=== PATIENT | male | born 1960 | race Caucasian/White ===

== ENCOUNTER 2019-06-07 08:11 | Inpatient (IN) | payer OTHER, MEDICAID ==
[~2019-06-07] VITALS: Ht 165.1 cm; Wt 68.0 kg
[2019-06-07 08:11] VITALS: BP 132/64
--- NOTE | 2019-06-07 08:13 | NUR ---
PT BIB [facility] TO ER BED 3
--- NOTE | 2019-06-07 08:14 | NUR ---
59/M BIBA FROM [facility] FOR EVALUATION OF COUGH, CONGESTION SINCE LAST NIGHT. NON VERBAL. HX BLIND,CP, HEPATITIS B, ADHD, G-TUBE, ICD,THROMBOCYTOPENIA. PATIENT POSITIONED FOR COMFORT; HOB ELEVATED; BEDRAILS UP X2; BED DOWN. ER MD MADE AWARE OF PT STATUS.
[2019-06-07] MEDS ORDERED: NACL 0.9% 2,000 ML IV ONE (08:15)
[2019-06-07] MEDS ORDERED: MEROPENEM 1,000 MG in NACL 0.9% 100 ML IV ONE (08:15)
[2019-06-07] MEDS ORDERED: VANCOMYCIN 1,000 MG in DEXTROSE 5% 250 ML IV ONE (08:15)
--- NOTE | 2019-06-07 08:18 | NUR ---
Dr. Franco is evaluating the patient at bedside.
[2019-06-07] MEDS ORDERED: VANCOMYCIN 1,000 MG VIAL ONE (08:29)
[2019-06-07] MEDS ORDERED: MEROPENEM 1,000 MG VIAL IV ONE (08:29)
[2019-06-07] MEDS ORDERED: AZEL137S8 NS (08:31)
[2019-06-07] MEDS ORDERED: FINA5TAB1 GT (08:31)
[2019-06-07] MEDS ORDERED: MIRABULK GT (08:31)
[2019-06-07] MEDS ORDERED: NA P133E RC (08:31)
[2019-06-07] MEDS ORDERED: [UNRECOGNIZED DRUG - CODE] GT (08:31)
[2019-06-07] MEDS ORDERED: BRIM2.5D OP (08:31)
[2019-06-07] MEDS ORDERED: RISP1TAB27 GT (08:31)
[2019-06-07] MEDS ORDERED: FLONAS NS (08:31)
[2019-06-07] MEDS ORDERED: MENT1OIN22 TP (08:31)
[2019-06-07] MEDS ORDERED: ACET-2619 GT (08:31)
[2019-06-07] MEDS ORDERED: [UNRECOGNIZED DRUG - CODE] GT (08:31)
[2019-06-07] MEDS ORDERED: SODI126M NS (08:31)
[2019-06-07] MEDS ORDERED: RISP2TAB29 GT (08:31)
--- NOTE | 2019-06-07 08:41 | NUR ---
coding tech at bedside.
[2019-06-07] MEDS ORDERED: ALBUTEROL SULFATE/IPRATROPIU 3 ML SOL IH ONE (08:45)
[2019-06-07 08:57] LABS: BASOPHILS % (AUTO) 0.1 % (0.0-2.0); EOSINOPHILS % (AUTO) 0.2 % (0.0-4.0); HEMATOCRIT 37.3 % (36-52); HEMOGLOBIN 11.9 g/dL (12.0-18.0); LYMPHOCYTES # (AUTO) 1.4 K/uL (2.0-11.5); LYMPHOCYTES % (AUTO) 7.5 % (20.5-51.1); MEAN CORPUSCULAR HEMOGLOBIN 27 pg (27-31); MEAN CORPUSCULAR HGB CONC 32 g/dL (33-37); MEAN CORPUSCULAR VOLUME 86.1 fL (80-94); MONOCYTES % (AUTO) 5.6 % (1.7-9.3); NEUTROPHILS % (AUTO) 86.6 % (42.2-75.2); PLATELET COUNT (AUTO) 159 K/uL (140-450); RED BLOOD CELL COUNT(AUTO) 4.34 MIL/uL (4.20-6.10); RED CELL DISTRIBUTION WIDTH 14.6 % (11.6-13.7)
[2019-06-07 09:07] LABS: ANION GAP 11.6 (8-16); CARBON DIOXIDE 27.2 mmol/L (21-32); CREATININE 0.8 mg/dL (0.7-1.3); POTASSIUM 3.8 mmol/L (3.5-5.1)
[2019-06-07 09:13] LABS: ALBUMIN 2.8 g/dL (3.4-5.0); TOTAL BILIRUBIN 0.3 mg/dL (0.0-1.0)
[2019-06-07 09:14] LABS: WHITE BLOOD COUNT (AUTO) 18.5 K/uL (4.8-10.8)
[2019-06-07 10:45] VITALS: BP 103/51
--- NOTE | 2019-06-07 10:45 | NUR ---
Patient will be admitted to care of DR LOPEZ. Admited to TELE. Will go to room 123B. Belongings list completed. Report to SAIRA GIORDANO.
--- NOTE | 2019-06-07 10:46 | NUR ---
RECEIVED REPORT FROM ER NURSE AYLIN. PT HAS IV ON RT FOREARM AT PT IS BLIND ON BOTH EYES, PT HAS ALLERGY WITH
--- NOTE | 2019-06-07 10:46 | NUR ---
RECEIVED REPORT FROM ER NURSE AYLIN. CAREGIVER, CHELA ON BEDSIDE. PT HAS IV ON RT FOREARM 20G. WITH VANCOMYCIN INFUSING AT 165ML/HR. PT APPEARS STABLE, NO SIGNS OF DISTRESS. PT IS BLIND ON BOTH EYES, HAS ALLERGY WITH SULFA AND DOXYCYCLINE. PT IS FALL RISK. PT HAS G TUBE, SKIN INTACT. MRSA SWAB AND URINE SAMPLE TAKEN AND SENT TO LAB. ALLERGY AND FALL RISK BANDS IMPLEMENTED. PT HAS TELE MONITOR. CALL LIGHT WITHIN PT'S REACH, SIDERAILS UP, BED ON LOW. WILL CONTINUE MONITORING
--- NOTE | 2019-06-07 11:00 | NUR ---
MRSA SWAB DONE AND URINE SAMPLE WERE SENT TO LAB.
--- NOTE | 2019-06-07 12:05 | NUR ---
FREQUENT ROUNDING DONE. PT IS ON HIS LEFT SIDE. ASSIST PT TO UPRIGHT POSITION FOR BETTER LUNG EXPANSION. PT HAS O2 AT 2LPM VIA NC. CALL LIGHT WITHIN PT'S REACH, BED LOW, SIDE RAILS UP. WILL CONTINUE MONITORING.
[2019-06-07] MEDS ORDERED: LORazepam 2 MG/ML VIAL IVP PRN (12:20)
[2019-06-07] MEDS ORDERED: ACETAMINOPHEN 325 MG TAB PO PRN (12:20)
[2019-06-07] MEDS ORDERED: ONDANSETRON 4 MG/2 ML VIAL IVP PRN (12:20)
[2019-06-07] MEDS ORDERED: SODIUM PHOSPHATE 118 ML ENEM RC PRN (12:20)
[2019-06-07] MEDS ORDERED: HYDROcodone/APAP 5/325 MG 1 TAB TAB PO PRN (12:20)
[2019-06-07] MEDS ORDERED: SODIUM CHLORIDE 0.65% 45 ML BTL NS PRN (12:20)
[2019-06-07] MEDS ORDERED: ACETAMINOPHEN 650 MG/20.3 ML UDC GT PRN (12:20)
[2019-06-07] MEDS ORDERED: guaiFENesin 20 MG/ML UDC GT PRN (12:20)
[2019-06-07] MEDS ORDERED: [UNRECOGNIZED DRUG - REMARK] GT PRN (12:20)
[2019-06-07 13:14] LABS: APPEARANCE,URINE CLEAR (CLEAR); BILIRUBIN,URINE NEGATIVE (NEGATIVE); BLOOD, URINE NEGATIVE (NEGATIVE); COLOR,URINE YELLOW (YELLOW); LEUKOCYTE ESTERASE ,URINE NEGATIVE (NEGATIVE); NITRITE, URINE NEGATIVE (NEGATIVE); UGLUCOSE NEGATIVE (NEGATIVE)
--- NOTE | 2019-06-07 14:56 | NUR ---
DC PLANNIN YRS OLD MALE PATIENT WAS ADMITTED FROM [facility] WITH A DX OF PNEUMONIA. PT IS BLIND AND NON-VERBAL HAS A HX OF MENTAL RETARDATION , CEREBRAL PALSY, HEP B, ADHD, ICD, G-TUBE AND THROMBOCYTOPENIA. CBC 18.5 CXR ORDERED BLOOD CULTURE PENDING . ADMINISTERED VANCOMYCIN AND MEROPENEM IV ABX , RT PROTOCOL AND CONTINUE HOME MEDS. DC PLAN TO GO TO [facility] WHEN STABLE. CM TO FOLLOW . Addendum: 06/08/19 at 1330 by Delmi Grijalva CM DC PLANNING SEEN BY DR DAVID JONES CONTINUE IV ABX OF VANCOMYCIN AND MEROPENEM AND TAMIFLU, URINE CULTURE PENDING , ISOLATION FOR MRSA OF NARES. CONSULTED WITH DR CHERRY FOR BLACK EMESIS /RESIDUAL FROM G-TUBE. DC PLAN TO GO BACK TO [facility] WHEN STABLE. CM TO FOLLOW. Addendum: 06/10/19 at 1632 by Shruthi Roche ON ISO FOR MRSA NARES. BLOOD C/S NO GROWTH AFTER 48 HOURS. STILL ON MERREM AND VANCO. DC PLAN BACK TO [facility] PENDING PATIENT'S RESPONSE TO TREATMENT. Addendum: 06/11/19 at 1445 by Delmi Grijalva DC PLANNING: CONTINUE WITH CURRENT ABX MEROPENEM , VANCOMYCIN AND TAMIFLU DAY #3 AND VANCO VIA G-TUBE FOR C-DIFF .DC PLAN AWAITING FOR FINAL CULTURE RESULTS .DC PLAN TO GO BACK TO [facility] WHEN STABLE . CM TO FOLLOW Addendum: 06/12/19 at 1449 by Delmi Grijalva DC PLANNING: CALLED LAB FOR THE FINAL RESULT OF SPUTUM CULTURE , CHECKED IT WITH [facility] STATED NO NEED FOR GRAM POSITIVE COCCI MANY YEAST.NOTIFIED DR PALIWAL A. FOR IV ABX. PT HAS A DC ORDER TO [facility] ,FAXED TO I [facility] , WAITING FOR PICC LINE PLACEMENT CM TO FOLLOW Addendum: 06/12/19 at 1604 by Delmi Grijalva CM DC PLANNING PATIENT IS ACCEPTED AT [facility] ROOM 420A # TO GIVE REPORT [phone] AND [facility] WITH [employer] AND DECK SUPERVISOR TIME 5:30 PM NOTIFIED MILLER CHARGE NURSE
[2019-06-07 16:00] VITALS: BP 108/67
--- NOTE | 2019-06-07 16:06 | NUR ---
[facility] CONSULT HAS BEEN RECEIVED FOR TUBE FEEDING. PATIENT WILL BE ASSESSED WITHIN 1-2 DAYS OF ADMISSION.
--- NOTE | 2019-06-07 16:13 | NUR ---
RD RECOMMENDATION FOR TUBE FEEDING: JEVITY 1.2 @ 60 ML/HR X 24 HR WITH FREE WATER FLUSH OF 140 ML Q6H. THIS WAS GIVEN TO PASQUALE SARMIENTO. TUBE FEEDING RECOMMENDATION WILL PROVIDE 1440 ML OF VOLUME, 1728 KCAL AND 80 GM OF PROTEIN/DAY.
--- NOTE | 2019-06-07 17:30 | NUR ---
PT VOMITED AND THE COLOR OF THE VOMITUS IS BLACK, PT WAS CLEANED AND NO SIGN OF DISTRESS NOTED AND WILL MONITOR .
--- NOTE | 2019-06-07 19:11 | NUR ---
REPORT GIVEN TO CIVIL ENGINEERING DIRECTOR NURSE FOR CONTINUITY OF CARE. PT APPEARS STABLE, NO SIGNS OF DISTRESS, PT HAS O2 AT 2LPM VIA NC. CALL LIGHT WITHIN PT'S REACH, BED ON LOW AND SIDERAILS UP.
--- NOTE | 2019-06-07 19:15 | NUR ---
RECEIVED REPORT FROM DAYSHIFT NURSE AT PATIENTS BEDSIDE. PATIENT NONVERBAL, UNABLE TO FOLLOW COMMANDS, DOES NOT OPEN EYES, LEGALLY BLIND PLACARD PLACED AT BEDSIDE. ABNORMAL FLEXION. PATIENT ON NASAL CANNULA 2LPM, OXYGEN SATURATION 82%, INCREASED TO 3LPM FOR SATURATIONS AT 89%. BREATHING IS UNLABORED BUT RHONCHI HEARD THROUGHOUT, COUGH AND CONGESTION NOTED. SMALL AMOUNT OF WHITE CREAMISH SECRETIONS NOTED. SINUS TACH ON MONITOR. RIGHT FOREARM PERIPHERAL IV, 20G FLUSHED AND PATENT WITHOUT SYMPTOMS. SALINE LOCKED. GTUBE IN PLACE CLAMPED TO PATIENT. PATIENT IS INCONTINENT, DIAPER IN PLACE. SKIN INTACT. BED IS LOCKED AND IN LOW POSITION, SIDERAILS UP x3, SAFETY ALARMS IN PLACE. WILL CONTINUE TO MONITOR.
[2019-06-07 20:00] VITALS: BP 119/65
[2019-06-07] MEDS: MEROPENEM 1,000 MG in NACL 0.9% 100 ML IV SCH (20:54)
[2019-06-07] MEDS: POLYETHYLENE GLYCOL 17 GM/PKT GT SCH (20:54)
[2019-06-07] MEDS: risperiDONE 1 MG TAB GT SCH (20:54)
[2019-06-07] MEDS ORDERED: AZELASTINE HCL NS SCH (21:00)
[2019-06-07] MEDS ORDERED: RISPERIDONE 2 MG GT SCH (21:00)
--- NOTE | 2019-06-07 21:10 | NUR ---
TYLER VALVE ATTACHED TO PATIENTS GTUBE. CHECKED RESIDUALS, 30 ML OF BLACK GASTRIC JUICES NOTED. SCHEDULED MEDICATIONS GIVEN, PATIENT TOLERATED WELL.
--- NOTE | 2019-06-07 21:40 | NUR ---
SPOKE WITH , MADE AWARE THAT PHARMACY DOES NOT HAVE MEDICATION-MENTHOL/ZINC OXIDE AVAILABLE. OK TO HOLD MEDICATION FOR NOW, NEW ORDERS FOR FLONASE-1 SPRAY EACH NOSTRIL BID, IV FLUIDS D5 0.45 NS @ 100ML/HR, AND GI CONSULT WITH DR. Siddharth CHERRY PER BLACK EMESIS AND BLACK RESIDUALS FROM GTUBE. ALSO OK TO HOLD FEEDING RECOMMENDATION- JEVITY 1.2. WILL CARRY OUT.
[2019-06-07] MEDS: DEXT 5% / NACL 0.45% 1,000 ML IV SCH (22:58)
--- NOTE | 2019-06-07 23:05 | NUR ---
PATIENT IS NOTED WITH ABNORMAL FLEXION/RIGID AND SEMI-CONTRACTED. PATIENT ACCIDENTALLY PULLED OUT IV SITE AT RIGHT FOREARM. RN CLEANED AND APPLIED DRESSING AT OLD IV SITE. STARTED NEW PERIPHERAL IV AT RIGHT FOREARM 22G, FLUSHED, PATENT AND WITHOUT SYMPTOMS. IV FLUIDS INFUSING.
[2019-06-07] MEDS ORDERED: VANCOMYCIN PER PHARMACY MC PRN (23:55)
[2019-06-08] VITALS: BP 117/64
--- NOTE | 2019-06-08 01:00 | NUR ---
INFLUENZA SWAB OF BOTH NARES OBTAINED. NASAL CANNULA BACK IN PLACE TO 3LPM. PATIENT TOLERATED WELL.
[2019-06-08] MEDS ORDERED: VANCOMYCIN 1,000 MG in DEXTROSE 5% 250 ML IV SCH (02:00)
--- NOTE | 2019-06-08 02:25 | NUR ---
PATIENT VOMITED A GOOD AMOUNT OF BLACK EMESIS. ALSO HAD A MODERATE SIZE BOWEL MOVEMENT, BLACK AND SEMI SOLID. PROVIDED SPONGE BATH AND SKIN CARE. VITALS RECORDED: HR-132 BPM, BP-124/108, G3WLOC-81% ON NASAL CANNULA 3LPM. GTUBE CLAMPED AT THIS TIME. REINFORCED NASAL CANNULA, INTERMITTENT COUGH NOTED. SAFETY ALARMS IN PLACE. WILL CONTINUE TO MONITOR.
[2019-06-08 04:00] VITALS: BP 112/46
--- NOTE | 2019-06-08 04:10 | NUR ---
PATIENT CONTINUED ON NASAL CANNULA AT 3LPM, SATURATIONS ARE IMPROVING, AT 94%. SAFETY ALARMS IN PLACE, IV FLUIDS INFUSING, BED LOCKED AND IN LOWEST POSITION.
[2019-06-08] MEDS: MEROPENEM 1,000 MG in NACL 0.9% 100 ML IV SCH ×3 (04:48→21:21)
[2019-06-08] MEDS ORDERED: VANCOMYCIN 1,000 MG VIAL ONE (06:00)
[2019-06-08 06:20] LABS: ANION GAP 10.4 (8-16); CARBON DIOXIDE 28.3 mmol/L (21-32); CREATININE 0.8 mg/dL (0.7-1.3); POTASSIUM 3.7 mmol/L (3.5-5.1)
--- NOTE | 2019-06-08 06:20 | NUR ---
SHOPPING INVESTIGATOR AT BEDSIDE FOR CHEST XRAY, PATIENT TOLERATED WELL.
--- NOTE | 2019-06-08 07:12 | NUR ---
RECEIVED REPORT FROM CLASSIFICATION CASE MANAGER NURSE FOR CONTINUITY OF CARE. PT IS SLEEPING WITH NO SIGNS OF DISTRESS. PT HAS IV D5 1/2 NS AT RT FOREARM 20G INFUSING AT 100ML/HR. PT HAS 02 AT 3LPM VIA NC.PT IS NON-VERBAL. CALL LIGHT WITHIN PT'S REACH, BED ON LOW, SIDERAILS UP. WILL CONTINUE TO MONITOR.
[2019-06-08 08:00] VITALS: BP 111/58
[2019-06-08 08:40] LABS: HEMATOCRIT 34.3 % (36-52); HEMOGLOBIN 10.8 g/dL (12.0-18.0); MEAN CORPUSCULAR VOLUME 86.6 fL (80-94); RED BLOOD CELL COUNT(AUTO) 3.97 MIL/uL (4.20-6.10); WHITE BLOOD COUNT (AUTO) 28.4 K/uL (4.8-10.8)
[2019-06-08 08:41] LABS: MEAN CORPUSCULAR HEMOGLOBIN 27 pg (27-31); MEAN CORPUSCULAR HGB CONC 32 g/dL (33-37); PLATELET COUNT (AUTO) 141 K/uL (140-450); RED CELL DISTRIBUTION WIDTH 14.6 % (11.6-13.7)
[2019-06-08 08:42] LABS: LYMPHOCYTES % (MANUAL) 12 % (20-46); MONOCYTES % (MANUAL) 2 % (5-12)
--- NOTE | 2019-06-08 08:43 | NUR ---
PATIENT HAS BEEN SCREENED AND CATEGORIZED HIGH NUTRITION RISK. PATIENT WILL BE SEEN WITHIN 1-2 DAYS OF ADMISSION. 06/08/[address]
[2019-06-08] MEDS ORDERED: MENTHOL/ZINC OXIDE 113 GM TUBE TP SCH (09:00)
--- NOTE | 2019-06-08 09:00 | NUR ---
PT HAD BM. ASSISTED NATIONAL VAN OWNER OPERATOR CLEANING THE PT AND CHANGING GOWN. BM APPEARS DARK AND PASTY. ALL SAFETY MEASURE WAS PUT IN PLACE.
[2019-06-08] MEDS: FINASTERIDE 5 MG TAB GT SCH (09:30)
[2019-06-08] MEDS: risperiDONE 1 MG TAB GT SCH ×2 (09:30→21:21)
[2019-06-08] MEDS: POLYETHYLENE GLYCOL 17 GM/PKT GT SCH ×2 (09:30→21:24)
[2019-06-08] MEDS: OSELTAMIVIR PHOSPHATE 75 MG CAP GT SCH ×2 (09:30→21:21)
--- NOTE | 2019-06-08 09:30 | NUR ---
THERE IS A RESIDUAL OF 30ML FROM G-TUBE. GREENISH IN COLOR. SCHEDULED MEDS GIVEN. HANG A NEW BAG OF D5 1/2 NS INFUSING AT 100ML/HR. WILL CONTINUE TO MONITOR
[2019-06-08] MEDS: FLUTICASONE NASAL 50 MCG/ACTUATION 16 GM BTL NS SCH ×2 (09:59→21:00)
[2019-06-08] MEDS: DEXT 5% / NACL 0.45% 1,000 ML IV SCH ×2 (09:59→21:33)
[2019-06-08 12:00] VITALS: BP 94/54
--- NOTE | 2019-06-08 12:20 | NUR ---
PT WAS GIVEN MERREM IVPB NOW , BP IS 92/53, PULSE IS 94, O2 SATURATION IS 100% AT 3L O2 NC, NO SIGN OF DISTRESS NOTED AND WILL MONITOR PT
--- NOTE | 2019-06-08 13:39 | NUR ---
LOAN ASSISTANT assessment/discharge plan High Risk DC Screen Yes Name: Marsha Dennis Home Relationship: sister Pre-Admission Living Arrangements: Other Other: [facility] ([facility]) Prior ADL Needs Assistance Current Home Health Name/Tel: N/A Current DME/02 Name/Tel: wheelchair Current Hospice Name/Tel: N/A Current Dialysis Name/Tel: N/A Healthcare Decision Maker: Next of Kin Other: [facility] Advance Directive No Tentative Discharge Plan Summary: Patient is a 59 year old male admitted for pneumonia at bedside. I called and spoke with department sales manager Analisa Wolfe of [facility], she referred me to speak with their nurse Pretty to obtained information about patient . I called and spoke with Pretty and obtained following information. Patient's case coordinator at [facility] is Sisi Pritchett . Patient is not conserved and [facility] either contacts Sisi or patient's sister Marsha Dennis for medical consents. [facility] cannot accept patient at their facility if he needs abx iv/s. Patient's pcp is Thomas Higuera and follows up with patient at [facility] once a month or as needed. Tipple Engineer and/or Antique Furniture Reproducer will follow up as needed. Signature: LIZZIE Baldwin Date: Jun 08, 2019
[2019-06-08] MEDS: VANCOMYCIN 1,000 MG in DEXTROSE 5% 250 ML IV SCH (14:16)
[2019-06-08] MEDS ORDERED: fentaNYL 0.05 MG/ML VIAL ONE (14:19)
[2019-06-08] MEDS ORDERED: diphenhydrAMINE 50 MG/ML VIAL ONE (14:19)
[2019-06-08] MEDS ORDERED: MIDAZOLAM 2 MG/2 ML VIAL ONE (14:19)
--- NOTE | 2019-06-08 14:33 | NUR ---
PT IS OFF THE UNIT NOW FOR A EGD PROCEDURE, BP NOTED WAS 85/47, PULSE IS 89% 98%, DR. CHERRY WAS INFORMED AND ORDERED THE OR NURSES TO GIVE NORMAL SALINE BOLUS OF 1000ML.
--- NOTE | 2019-06-08 15:20 | NUR ---
PT CAME BACK FROM EGD PROCEDURE, BP IS 102/54, PULSE IS 95, WILL MONITOR PT.
--- NOTE | 2019-06-08 15:56 | NUR ---
06/08/19 RD INITIAL ASSESSMENT COMPLETED PLEASE REFER TO NUTRITION ASSESSMENT UNDER CARE ACTIVITY FOR ESTIMATED NUTRITIONAL NEEDS. 1. CONTINUE NPO MEDICALLY APPROPRIATE 2. IF/WHEN PATIENT IS MEDICALLY STABLE CONSIDER JEVITY 1.2 @ 60 ML/HR X 24 HR WITH A FREE WATER FLUSH OF 140 ML Q6H -THIS WILL PROVIDE 1440 ML OF VOLUME, 1728 KCAL AND 80 GM OF PROTEIN, WHICH MEETING 100% OF ESTIMATED NEEDS 3. IR PATIENT CONTINUES NPO CONSIDER PARENTERAL NUTRITION 4. RD TO FOLLOW-UP 2-3 DAYS, HIGH RISK ROXY LU RD
[2019-06-08 16:00] VITALS: BP 101/60
--- NOTE | 2019-06-08 18:05 | NUR ---
CHECKED RESIDUAL , NONE. SCHEDULED MEDS GIVEN. FLUSHED WITH WATER AFTER. PT APPEARS STABLE, NO SIGNS OF DISTRESS, CALL LIGHT WITHIN PT'S REACH, BED ON LOW, SIDERAILS UP. WILL CONTINUE TO MONITOR
[2019-06-08] MEDS: METOCLOPRAMIDE 10 MG/10 ML SYRP UDC GT SCH (18:09)
[2019-06-08] MEDS: SENNA 8.6 MG TAB PO SCH (18:10)
--- NOTE | 2019-06-08 19:05 | NUR ---
REPORT GIVEN TO BRIDGE TEACHER NURSE FOR CONTINUITY OF CARE. PT APPEARS STABLE. G TUBE FEEDING STARTED. CALL LIGHT IN PLACE WITHIN PT'S REACH.
--- NOTE | 2019-06-08 19:15 | NUR ---
RECEIVED BEDSIDE REPORT FROM AM SHIFT NURSE. PATIENT IS LYING IN BED. NO SOB OR DISTRESS NOTED. ON 02 3LPM VIA NASAL CANNULA, TOLERATING WELL. IV ACCESS ON RIGHT FOREARM 22 GAUGE, PATENT, INTACT AND INFUSING WELL. SKIN IS INTACT. GTUBE IN PLACE, WITH ONGOING FEEDING. BOARD UPDATED. INITIAL ASSESSMENT DONE. CALL LIGHT WITHIN PATIENT REACH. WILL CONTINUE TO MONITOR PATIENT. Addendum: 06/08/19 at 2019 by Alba Omer RN BED IN LOW, SAFETY MEASURES IN PLACE.
[2019-06-08 20:20] VITALS: BP 120/74
--- NOTE | 2019-06-08 21:05 | NUR ---
ROUNDS DONE. NO DISTRESS NOTED AT THIS TIME. WILL CONTINUE TO MONITOR PATIENT.
[2019-06-09 00:05] VITALS: BP 114/62
[2019-06-09] MEDS: DEXT 5% / NACL 0.45% 1,000 ML IV SCH (00:20)
--- NOTE | 2019-06-09 00:43 | NUR ---
PATIENT REPOSITIONED WITH HELP OF ARTIST MANAGER AT THIS TIME. NO DISTRESS NOTED.
--- NOTE | 2019-06-09 02:30 | NUR ---
ROUNDS DONE. NO DISTRESS NOTED AT THIS TIME. CALL LIGHT WITHIN PATIENT REACH. WILL CONTINUE TO MONITOR PATIENT.
[2019-06-09] MEDS: VANCOMYCIN 1,000 MG in DEXTROSE 5% 250 ML IV SCH ×2 (02:49→14:46)
[2019-06-09 04:10] VITALS: BP 129/79
[2019-06-09] MEDS: MEROPENEM 1,000 MG in NACL 0.9% 100 ML IV SCH ×3 (04:30→21:15)
--- NOTE | 2019-06-09 04:50 | NUR ---
RT SUCTIONED OUT DARK/BLACKISH LIQUID. CN MADE AWARE. FEEDING STOPPED AT THIS TIME. Addendum: 06/09/19 at 0510 by Alba Omer RN DESCRIPTION OF COLOR EDIT TO COFFEE GROUND COLOR
--- NOTE | 2019-06-09 05:01 | NUR ---
0450 SXNED PATIENT FOR SPUTUM SAMPLE. RECIEVED DARK BROWN LIQUID. NO SPUTUM UPTAINED. PATIENTS BREATH SOUNDS ARE COARSE. RN AWARE
--- NOTE | 2019-06-09 05:05 | NUR ---
PAGEVaibhav BOCANEGRA AT THIS TIME.
--- NOTE | 2019-06-09 05:25 | NUR ---
SPOKE WITH AT THIS TIME. NEW ORDER MADE TO INSERT NGT WITH INTERMITTENT SUCTIONING. ORDERS CARRIED OUT.
--- NOTE | 2019-06-09 05:26 | NUR ---
MD ORDERED FOR FEEDING TO BE STOPPED AND NGT TO BE INSERTED.
--- NOTE | 2019-06-09 06:12 | NUR ---
NGT INSERTED AT THIS TIME WITH HELP FROM ANOTHER RN AND CHARGE NURSE.
--- NOTE | 2019-06-09 06:46 | NUR ---
SPOKE WITH MD FOR ORDERS FOR MITTENS, NON-BEHAVIORAL RESTRAINTS. PATIENT KEEPS PULLING O2 TUBING AND PATIENT PULLED NG-TUBE.
--- NOTE | 2019-06-09 06:50 | NUR ---
TRIED TO REINSERT NG-TUBE WITH HELP FROM CHARGE NURSE AND ANOTHER RN. UNSUCCESSFUL AT THIS TIME. WILL ENDORSE TO AM SHIFT NURSE.
[2019-06-09] MEDS: METOCLOPRAMIDE 10 MG/10 ML SYRP UDC GT SCH ×3 (07:20→17:01)
--- NOTE | 2019-06-09 07:20 | NUR ---
ENDORSED TO AM SHIFT NURSE FOR CONTINUITY OF CARE. PATIENT IN STABLE CONDITION AT THIS TIME. CALL LIGHT WITHIN PATIENT REACH.
--- NOTE | 2019-06-09 07:21 | NUR ---
RECEIVED REPORT FROM SQUARING MACHINE OPERATOR NURSE AT BEDSIDE FOR CONTINUITY OF CARE. PATIENT IS LYING IN BED, LEGALLY BLIND. NO SOB OR DISTRESS NOTED ON 02 3L VIA NASAL CANNULA. IV ACCESS ON RIGHT FOREARM 22 GAUGE, PATENT, INTACT AND INFUSING WELL. SKIN IS INTACT. GTUBE IN PLACE, ON HOLD FOR NGT INSERTION. BOARD UPDATED. SAFETY PRECAUTIONS IN PLACE, BED IN LOWEST POSITION WITH ALARM AND BRAKES ON, CALL LIGHT WITHIN PATIENT REACH. WILL CONTINUE TO MONITOR PATIENT.
[2019-06-09 07:47] LABS: ANION GAP 9.9 (8-16); CARBON DIOXIDE 29.1 mmol/L (21-32); CREATININE 0.7 mg/dL (0.7-1.3)
[2019-06-09 08:00] VITALS: BP 120/75
[2019-06-09 08:04] LABS: BASOPHILS % (AUTO) 0.2 % (0.0-2.0); EOSINOPHILS # (AUTO) 0.1 K/uL (0-0.4); EOSINOPHILS % (AUTO) 0.3 % (0.0-4.0); HEMOGLOBIN 10.8 g/dL (12.0-18.0); LYMPHOCYTES # (AUTO) 1.5 K/uL (2.0-11.5); LYMPHOCYTES % (AUTO) 8.8 % (20.5-51.1); MEAN CORPUSCULAR HEMOGLOBIN 27 pg (27-31); MEAN CORPUSCULAR HGB CONC 32 g/dL (33-37); MEAN CORPUSCULAR VOLUME 86.2 fL (80-94); MONOCYTES # (AUTO) 0.8 K/uL (0.8-1.0); NEUTROPHILS # (AUTO) 14.7 K/uL (1.8-7.7); NEUTROPHILS % (AUTO) 85.7 % (42.2-75.2); PLATELET COUNT (AUTO) 117 K/uL (140-450); RED BLOOD CELL COUNT(AUTO) 3.95 MIL/uL (4.20-6.10); RED CELL DISTRIBUTION WIDTH 14.2 % (11.6-13.7); WHITE BLOOD COUNT (AUTO) 17.1 K/uL (4.8-10.8)
[2019-06-09] MEDS: POLYETHYLENE GLYCOL 17 GM/PKT GT SCH ×2 (09:00→21:18)
[2019-06-09] MEDS: SENNA 8.6 MG TAB PO SCH ×3 (09:00→17:01)
--- NOTE | 2019-06-09 09:10 | NUR ---
NG TUBE INSERTED. WAITING FOR RADIOLOGY TO VERIFY PLACEMENT.
--- NOTE | 2019-06-09 09:40 | NUR ---
PATIENT REMOVED NG TUBE. WILL ATTEMPT TO INSERT AGAIN.
--- NOTE | 2019-06-09 10:30 | NUR ---
NG TUBE INSERTED. WILL WAIT FOR RADIOLOGY TO VERY PLACEMENT.
[2019-06-09] MEDS ORDERED: POTASSIUM CHLORIDE 20% 40 MEQ/15 ML UDC GT SCH ×2 (11:04→12:45)
--- NOTE | 2019-06-09 11:30 | NUR ---
DR CHERRY IN TO SEE PATIENT. INFORMED DR. CHERRY ABOUT SPUTUM RECEIVED BY RESPIRATORY. NEW ORDER IN TO DISCONTINUE GTUBE.
[2019-06-09 12:00] VITALS: BP 119/58
--- NOTE | 2019-06-09 12:10 | NUR ---
275 ML OF DARK LIQUID RESIDUAL TAKEN FROM GTUBE. GTUBE WILL BE HELD AT THIS TIME. WILL REASSESS. PATIENT'S FAMILY VISITED. UPDATED THEM WITH PLAN OF CARE. NO S/S OF DISTRESS NOTED FROM PATIENT. SAFETY PRECAUTIONS IN PLACE, CALL LIGHT WITHIN REACH, WILL CONTINUE TO MONITOR PATIENT.
[2019-06-09] MEDS: FLUTICASONE NASAL 50 MCG/ACTUATION 16 GM BTL NS SCH ×2 (13:20→21:00)
--- NOTE | 2019-06-09 13:31 | NUR ---
GTUBE ASCULTATED FOR PLACEMENT, 0 ML OF RESIDUAL NOTED. ORDERED MEDICATIONS GIVEN. PATIENT TOLERATING IT. NO S/S OF SOB OR DISTRESS NOTED AT THIS TIME. BED IN LOWEST POSITION WITH ALARM ON, CALL LIGHT WITHIN REACH, WILL CONTINUE TO MONITOR PATIENT.
[2019-06-09] MEDS ORDERED: CRUSHER, PILL MC ONE (13:35)
[2019-06-09] MEDS: risperiDONE 1 MG TAB GT SCH ×2 (13:38→21:18)
[2019-06-09] MEDS: OSELTAMIVIR PHOSPHATE 75 MG CAP GT SCH ×2 (13:39→21:18)
[2019-06-09] MEDS: FINASTERIDE 5 MG TAB GT SCH (13:39)
--- NOTE | 2019-06-09 14:27 | NUR ---
CALLED LAB TO INQUIRE ABOUT PENDING VANCO TROUGH. WILL WAIT FOR RESULTS.
--- NOTE | 2019-06-09 14:46 | NUR ---
GTUBE ASCULTATED FOR PLACEMENT, 0 ML OF RESIDUAL NOTED. ORDERED MEDICATIONS GIVEN. SCHEDULED ANTIBIOTICS GIVEN. PATIENT TOLERATING IT. NO S/S OF SOB OR DISTRESS NOTED AT THIS TIME. BED IN LOWEST POSITION WITH ALARM ON, CALL LIGHT WITHIN REACH, WILL CONTINUE TO MONITOR PATIENT.
[2019-06-09 16:00] VITALS: BP 114/67
--- NOTE | 2019-06-09 18:04 | NUR ---
NEW BAG OF TUBE FEEDING STARTED. GT AUSCULTATED FOR PLACEMENT, 0 ML OF RESIDUAL NOTED. PATIENT TOLERATING IT. PATIENT RESTING IN BED COMFORTABLY, BED IN LOWEST POSITION WITH ALARM ON, CALL LIGHT WITHIN REACH, WILL CONTINUE TO MONITOR PATIENT.
--- NOTE | 2019-06-09 19:23 | NUR ---
REPORT GIVEN TO AUTOMATIC BUFFING WHEEL FORMER NURSE AT BEDSIDE FOR CONTINUITY OF CARE. NO S/S OF DISTRESS OR SOB NOTED.
--- NOTE | 2019-06-09 19:24 | NUR ---
RECEIVED BEDSIDE REPORT FROM AM SHIFT NURSE PARTH. PATIENT IS LYING IN BED, AWAKE. NO DISTRESS NOTED. PATIENT IS ON O2 2LPM VIA NASAL CANNULA. IV ACCESS ON RIGHT FOREARM 22 GAUGE, PATENT AND INTACT, INFUSING WELL. PT NOTED WITH SOFT MITTEN NON-BEHAVIORAL RESTRAINTS, TOLERATING WELL. G-TUBE IN PLACE, FEEDING INFUSING WELL. BED IN LOW, SAFETY MEASURES IN PLACE. INITIAL ASSESSMENT DONE. CALL LIGHT PLACED WITHIN PATIENT REACH. WILL CONTINUE TO MONITOR PATIENT.
[2019-06-09 20:05] VITALS: BP 135/64
--- NOTE | 2019-06-09 21:05 | NUR ---
RESPIRATORY THERAPISTS WITH PATIENT OBTAINING A SPUTUM CULTURE AT THIS TIME.
--- NOTE | 2019-06-09 23:42 | NUR ---
ROUNDS DONE. PATIENT REPOSITIONED AT THIS TIME. NO DISTRESS NOTED. VISIBLE CHEST RISE AND FALL NOTED. WILL CONTINUE TO MONITOR PATIENT.
[2019-06-10 00:05] VITALS: BP 146/72
--- NOTE | 2019-06-10 02:00 | NUR ---
IV LINE REINSERTED. PATIENT PULLED OUT IV. NEW SITE LEFT FOREARM 22 GAUGE, PATENT AND INTACT INFUSING WELL.
[2019-06-10] MEDS: VANCOMYCIN 1,000 MG in DEXTROSE 5% 250 ML IV SCH ×2 (02:07→14:00)
[2019-06-10] MEDS: DEXT 5% / NACL 0.45% 1,000 ML IV SCH ×2 (02:07→23:33)
[2019-06-10] MEDS: MEROPENEM 1,000 MG in NACL 0.9% 100 ML IV SCH ×3 (04:23→21:43)
--- NOTE | 2019-06-10 04:45 | NUR ---
ROUNDS DONE. NO DISTRESS NOTED. WILL CONTINUE TO MONITOR PATIENT.
[2019-06-10 05:51] LABS: BASOPHILS % (AUTO) 0.2 % (0.0-2.0); HEMATOCRIT 29.9 % (36-52); HEMOGLOBIN 9.6 g/dL (12.0-18.0); LYMPHOCYTES # (AUTO) 1.6 K/uL (2.0-11.5); LYMPHOCYTES % (AUTO) 8.8 % (20.5-51.1); MEAN CORPUSCULAR HEMOGLOBIN 28 pg (27-31); MEAN CORPUSCULAR HGB CONC 32 g/dL (33-37); MEAN CORPUSCULAR VOLUME 85.3 fL (80-94); MONOCYTES # (AUTO) 0.7 K/uL (0.8-1.0); MONOCYTES % (AUTO) 4.1 % (1.7-9.3); NEUTROPHILS # (AUTO) 15.4 K/uL (1.8-7.7); NEUTROPHILS % (AUTO) 86.9 % (42.2-75.2); PLATELET COUNT (AUTO) 142 K/uL (140-450); RED BLOOD CELL COUNT(AUTO) 3.51 MIL/uL (4.20-6.10); RED CELL DISTRIBUTION WIDTH 14.3 % (11.6-13.7); WHITE BLOOD COUNT (AUTO) 17.7 K/uL (4.8-10.8)
[2019-06-10 06:11] LABS: CARBON DIOXIDE 29.7 mmol/L (21-32); CREATININE 0.7 mg/dL (0.7-1.3); POTASSIUM 3.7 mmol/L (3.5-5.1)
--- NOTE | 2019-06-10 07:14 | NUR ---
ENDORSED TO AM SHIFT NURSE FOR CONTINUITY OF CARE. PATIENT IN STABLE CONDITION.
--- NOTE | 2019-06-10 07:15 | NUR ---
RECEIVED REPORT FROM NIGHT RN. PATIENT IS FULL CODE, ALLERGIES TO SULFA. PATIENT CAME FROM [facility]. IV TO LEFT FA 22G WITH NS INFUSING AT 60 ML/HR. PATIENT HAS A G-TUBE WITH FEEDING AT 25ML/HR. PATIENT HAS NASAL CANNULA 2L. WILL REVIEW AND CONTINUE WITH PLAN OF CARE.
[2019-06-10] MEDS: METOCLOPRAMIDE 10 MG/10 ML SYRP UDC GT SCH ×3 (07:28→17:21)
[2019-06-10 07:34] VITALS: BP 136/74
[2019-06-10] MEDS: risperiDONE 1 MG TAB GT SCH ×2 (08:46→21:41)
[2019-06-10] MEDS: SENNA 8.6 MG TAB PO SCH ×3 (08:47→17:00)
[2019-06-10] MEDS: OSELTAMIVIR PHOSPHATE 75 MG CAP GT SCH ×2 (08:48→21:41)
[2019-06-10] MEDS: FINASTERIDE 5 MG TAB GT SCH (08:56)
[2019-06-10] MEDS: POLYETHYLENE GLYCOL 17 GM/PKT GT SCH ×2 (08:57→21:00)
--- NOTE | 2019-06-10 09:15 | NUR ---
ADMINISTERED MORNING MEDICATION VIA G TUBE. PATIENT TOLERATED WELL. PATIENT IS VERY ANTSY AND REMOVING GOWN CONSTANTLY. ATTEMPTING TO CONTINUOUSLY RE-ORIENT PATIENT.
[2019-06-10] MEDS: FLUTICASONE NASAL 50 MCG/ACTUATION 16 GM BTL NS SCH ×2 (09:27→21:00)
--- NOTE | 2019-06-10 10:00 | NUR ---
NEW IV LINE TO LEFT FA 22G D/T PATIENT PULLING OUT OLD LINE, CANNULA INTACT.
[2019-06-10 12:00] VITALS: BP 112/38
--- NOTE | 2019-06-10 12:00 | NUR ---
PATIENT RESTING QUIETLY IN BED. NO COMPLAINTS AT THIS TIME.
--- NOTE | 2019-06-10 14:00 | NUR ---
PATIENT RESTING IN BED, NO COMPLAINTS AT THIS TIME
[2019-06-10 16:00] VITALS: BP 116/56
--- NOTE | 2019-06-10 18:05 | NUR ---
PT IS COUGHING AND SOUNDS LIKE THERE ARE SECRETIONS BUILT UP. RAISED HOB TO 30 DEGREES, INCREASED O2 TO 3L VIA NASAL CANNULA, PATIENT SATURATING AT 94%. LISTENED TO BREATH SOUNDS, LUNGS SOUND CLEAR.
--- NOTE | 2019-06-10 19:25 | NUR ---
WAS INFORMED PATIENT IS POSITIVE FOR C DIFF. PAGED DR ARROYO
--- NOTE | 2019-06-10 19:26 | NUR ---
RECEIVED BEDSIDE REPORT FROM AM NURSE SHIRA, PT STABLE, NO DISTRESS NOTED, PT ON ,MITTEN RESTRAINTS DUE TO PT PULLING OUT NC, IVS AND GT. PT NONVERBAL, UNABLE TO UNDERSTAND/COMPREHEND TEACHINGS. PT IV TO L WRIST 22G PATENT INTACT, INFUSING WELL, PT ON 2LPM O2 VIA NC, NO SOB NOTED, GT IN PLACE WITH FEEDINGS, INITIAL ASSESSMENT DONE, ALL SAFETY PRECAUTION MET, CALL LIGHT WITHIN REACH, WILL CONTINUE TO MONITOR.
[2019-06-10 20:00] VITALS: BP 139/60
--- NOTE | 2019-06-10 21:43 | NUR ---
DUE MEDICATION ADMINISTERED, PT TOLERATED WELL, PT RESTING, NO DISTRESS NOTED, CALL LIGHT WITHIN REACH, WILL CONTINUE TO MONITOR. Addendum: 06/10/19 at 2240 by Amarilys Alvarez RN MIRALAX HELD DUE TO PT HAVING DIARRHEA FOR A FEW DAYS. MEDICATION FLONASE IS NOT AVAILABLE IN PT BEDSIDE OR BIN.
--- NOTE | 2019-06-10 22:18 | NUR ---
PT PULLED OUT IV, NEW IV INSERTED TO L FA 22G PATENT INTACT, INFUSING WELL, PT TOLERATED WELL, NO DISTRESS NOTED, CALL LIGHT WITHIN REACH, WILL CONTINUE TO MONITOR.
--- NOTE | 2019-06-10 22:32 | NUR ---
CALLED DR. ARROYO REGARDING PT POSITIVE FOR MRSA NARES, PER DR ARROYO TO ORDER BACTROBAN NASAL, WILL PUT IN ORDERS.
[2019-06-11] VITALS: BP 131/59
[2019-06-11] MEDS ORDERED: VANCOMYCIN 500 MG VIAL GT SCH
[2019-06-11] MEDS: VANCOMYCIN 500 MG VIAL GT SCH ×4 (01:00→18:27)
--- NOTE | 2019-06-11 01:00 | NUR ---
MEDICATION DUE ADMINISTERED, PT TOLERATED WELL, NO DISTRESS NOTED, CALL LIGHT WITHIN REACH, WILL CONTINUE TO MONITOR.
[2019-06-11] MEDS ORDERED: WATER STERILE 20 ML MC ONE (01:28)
[2019-06-11] MEDS ORDERED: VANCOMYCIN 1,000 MG VIAL ONE (01:55)
[2019-06-11] MEDS: VANCOMYCIN 1,000 MG in DEXTROSE 5% 250 ML IV SCH ×2 (02:05→14:00)
--- NOTE | 2019-06-11 02:05 | NUR ---
DUE MEDICATION ADMINISTERED, PT TOLERATED WELL, NO DISTRESS NOTED, CALL LIGHT WITHIN REACH, WILL CONTINUE TO MONITOR.
--- NOTE | 2019-06-11 02:58 | NUR ---
PT GT RESIDUAL 250ML, FEEDING HELD, WILL CONTINUE TO MONITOR. PT RESTING, NO DISTRESS NOTED, CALL LIGHT WITHIN REACH.
[2019-06-11 04:00] VITALS: BP 108/57
[2019-06-11] MEDS: MEROPENEM 1,000 MG in NACL 0.9% 100 ML IV SCH ×3 (05:06→20:04)
[2019-06-11 06:16] LABS: BASOPHILS % (AUTO) 0.4 % (0.0-2.0); EOSINOPHILS # (AUTO) 0.3 K/uL (0-0.4); EOSINOPHILS % (AUTO) 2.6 % (0.0-4.0); HEMATOCRIT 25.8 % (36-52); HEMOGLOBIN 8.4 g/dL (12.0-18.0); LYMPHOCYTES % (AUTO) 16.9 % (20.5-51.1); MEAN CORPUSCULAR HEMOGLOBIN 28 pg (27-31); MEAN CORPUSCULAR HGB CONC 33 g/dL (33-37); MEAN CORPUSCULAR VOLUME 85.1 fL (80-94); MONOCYTES % (AUTO) 8.5 % (1.7-9.3); NEUTROPHILS # (AUTO) 8.5 K/uL (1.8-7.7); NEUTROPHILS % (AUTO) 71.6 % (42.2-75.2); PLATELET COUNT (AUTO) 153 K/uL (140-450); RED BLOOD CELL COUNT(AUTO) 3.04 MIL/uL (4.20-6.10); RED CELL DISTRIBUTION WIDTH 14.2 % (11.6-13.7); WHITE BLOOD COUNT (AUTO) 11.9 K/uL (4.8-10.8)
[2019-06-11] MEDS: METOCLOPRAMIDE 10 MG/10 ML SYRP UDC GT SCH ×3 (06:27→16:30)
--- NOTE | 2019-06-11 06:35 | NUR ---
PT GT RESIDUAL STILL 130ML, CONTINUE TO HOLD GT FEED PER DR. ORDER. PT RESTING, NO DISTRESS NOTED, CALL LIGHT WITHIN REACH. WILL CONTINUE TO MONITOR.
[2019-06-11 06:44] LABS: ALBUMIN 1.8 g/dL (3.4-5.0); ANION GAP 4.6 (8-16); CARBON DIOXIDE 32.2 mmol/L (21-32); CREATININE 0.5 mg/dL (0.7-1.3); POTASSIUM 3.8 mmol/L (3.5-5.1); TOTAL BILIRUBIN 0.5 mg/dL (0.0-1.0)
--- NOTE | 2019-06-11 07:15 | NUR ---
RECEIVED REPORT FROM WASTEWATER OPERATOR NURSE. PATIENT IS ON NASAL CANNULA 3L. ON CONTACT PRECAUTIONS FOR C DIFF AND MRSA NARES. PATIENT HAS A G-TUBE, FEEDING CURRENTLY DC D/T HIGH RESIDUAL WITH WASTEWATER OPERATOR NURSE. PATIENT IS TO HAVE RT CONSULT TODAY FOR COUGH AND PERIODS OF BREATHING DISCOMFORT. CURRENTLY PATIENT IS SLEEPING, VISIBLE CHEST RISE AND FALL. RESTRAINTS HAVE BEEN RENEWED AT 0646. WILL REVIEW AND CONTINUE WITH PLAN OF CARE FOR THE DAY.
--- NOTE | 2019-06-11 07:25 | NUR ---
ENDORSED PT TO DAY SHIFT NURSE SHIRA GIORDANO. PT STABLE, NO DISTRESS NOTED, CALL LIGHT WITHIN REACH.
[2019-06-11 08:00] VITALS: BP 112/46
[2019-06-11] MEDS: FLUTICASONE NASAL 50 MCG/ACTUATION 16 GM BTL NS SCH ×2 (09:00→21:00)
--- NOTE | 2019-06-11 10:00 | NUR ---
ADMINISTERED MORNING MEDICATION VIA G-TUBE. RESIDUAL PRIOR WAS <5ML. WILL RESTART G-TUBE FEEDING AFTER 30 MIN.
[2019-06-11] MEDS: FINASTERIDE 5 MG TAB GT SCH (10:25)
[2019-06-11] MEDS: OSELTAMIVIR PHOSPHATE 75 MG CAP GT SCH ×2 (10:25→20:04)
[2019-06-11] MEDS: risperiDONE 1 MG TAB GT SCH ×2 (10:25→20:04)
[2019-06-11] MEDS: SENNA 8.6 MG TAB PO SCH ×3 (10:26→17:00)
[2019-06-11] MEDS: MUPIROCIN CA NASAL 2% 1GM TUBE NS SCH (10:28)
[2019-06-11] MEDS: POLYETHYLENE GLYCOL 17 GM/PKT GT SCH ×2 (10:28→20:04)
--- NOTE | 2019-06-11 11:30 | NUR ---
CHANGED PATIENTS SHEETS AND LINENS, NO BM NOTED.
[2019-06-11 12:00] VITALS: BP 94/44
--- NOTE | 2019-06-11 12:22 | NUR ---
06/11/19 RD FOLLOW UP COMPLETED PLEASE REFER TO NUTRITION ASSESSMENT UNDER CARE ACTIVITY FOR ESTIMATED NUTRITIONAL NEEDS. 1. RECOMMEND TO INCREASE ENTERAL NUTRITION GOAL RATE TO 60 ML/HR OF JEVITY 1.2 -THIS WILL PROVIDE 1440 ML OF VOLUME, 1728 KCAL AND 80 GM OF PROTEIN, WHICH MEETS 100% OF ESTIMATED NUTRIENT NEEDS 2. RECOMMEND FREE WATER FLUSH OF [address] TO FOLLOW-UP 2-3 DAYS, HIGH RISK ROXY LU, DAPHNIE
--- NOTE | 2019-06-11 13:30 | NUR ---
ROUNDED ON PATIENT. SLEEPING IN BED, VISIBLE CHEST RISE AND FALL. NO DISTRESS NOTED. PATIENT IS ON NASAL CANNULA 3L.
--- NOTE | 2019-06-11 15:46 | NUR ---
BEGAN VANCOMYCIN IVPB INFUSION. PATIENT IS SLEEPING IN BED, VISIBLE CHEST RISE AND FALL.
[2019-06-11 16:00] VITALS: BP 101/50
--- NOTE | 2019-06-11 16:07 | NUR ---
SPOKE WITH MAGALI FROM THE LAB REGARDING PT'S SPUTUM CULTURE RESULTS. PER MAGALI, RESULTS MIGHT COME IN TOMORROW.
[2019-06-11] MEDS: DEXT 5% / NACL 0.45% 1,000 ML IV SCH (16:13)
--- NOTE | 2019-06-11 18:27 | NUR ---
CHECKED PATIENTS RESIDUAL FROM G-TUBE, <5ML RETURN. ADMINISTERED VANCOMYCIN VIA G-TUBE. ALL NEEDS HAVE BEEN MET, WILL ENDORSE TO NIGHT NURSE FOR CONTINUITY OF CARE.
--- NOTE | 2019-06-11 19:25 | NUR ---
RECEIVED BEDSIDE REPORT FROM AM NURSE SHIRA, PT STABLE, NO DISTRESS NOTED, PT ON ,MITTEN RESTRAINTS DUE TO PT PULLING OUT NC, IVS AND GT. PT NONVERBAL, UNABLE TO UNDERSTAND/COMPREHEND TEACHINGS. PT IV TO L FA 22G PATENT INTACT, INFUSING WELL, PT ON 3LPM O2 VIA NC, NO SOB NOTED, GT IN PLACE WITH FEEDINGS, INITIAL ASSESSMENT DONE, ALL SAFETY PRECAUTION MET, CALL LIGHT WITHIN REACH, WILL CONTINUE TO MONITOR.
[2019-06-11 20:00] VITALS: BP 97/49
--- NOTE | 2019-06-11 20:04 | NUR ---
GIVEN POLYETHYLENE, RISPERIDONE, OSELTAMIVIR, AND MERREM MD ORDERED. PT TOLERATED WELL.
--- NOTE | 2019-06-11 20:30 | NUR ---
RECEIVED PATIENT ON 2L NASAL CANNULA, PULSE OX SAT 96%. NO ACUTE RESPIRATORY DISTRESS NOTED AT THIS TIME. WILL CONTINUE TO MONITOR.
--- NOTE | 2019-06-11 22:08 | NUR ---
PT HAD BM, CHANGED PT WITH COVER SEAMER, LIBERTAD. PT TOLERATED WELL.
[2019-06-12] VITALS: BP 95/56
[2019-06-12] MEDS: VANCOMYCIN 500 MG VIAL GT SCH ×3 (00:33→12:27)
--- NOTE | 2019-06-12 00:33 | NUR ---
GIVEN VANCO GT MD ORDERED. PT TOLERATED WELL.
[2019-06-12] MEDS: VANCOMYCIN 1,000 MG in DEXTROSE 5% 250 ML IV SCH ×2 (02:08→14:32)
--- NOTE | 2019-06-12 02:25 | NUR ---
PT SLEEPING IN BED, NO ACUTE DISTRESS NOTED.
[2019-06-12 04:00] VITALS: BP 107/44
[2019-06-12] MEDS: DEXT 5% / NACL 0.45% 1,000 ML IV SCH (04:20)
[2019-06-12] MEDS: MEROPENEM 1,000 MG in NACL 0.9% 100 ML IV SCH (04:21)
--- NOTE | 2019-06-12 04:21 | NUR ---
PT HAD BM, BLACK DIARRHEA. CHANGED PT WITH LIBERTAD KHOURY. GIVEN MERREM MD ORDERED. PT TOLERATED WELL.
[2019-06-12 06:29] LABS: CREATININE 0.7 mg/dL (0.7-1.3)
[2019-06-12 06:34] LABS: BASOPHILS % (AUTO) 0.5 % (0.0-2.0); EOSINOPHILS # (AUTO) 0.5 K/uL (0-0.4); EOSINOPHILS % (AUTO) 6.4 % (0.0-4.0); HEMATOCRIT 25.5 % (36-52); HEMOGLOBIN 8.6 g/dL (12.0-18.0); LYMPHOCYTES # (AUTO) 2.6 K/uL (2.0-11.5); LYMPHOCYTES % (AUTO) 30.4 % (20.5-51.1); MEAN CORPUSCULAR HEMOGLOBIN 29 pg (27-31); MEAN CORPUSCULAR HGB CONC 34 g/dL (33-37); MEAN CORPUSCULAR VOLUME 85.3 fL (80-94); MONOCYTES # (AUTO) 0.9 K/uL (0.8-1.0); MONOCYTES % (AUTO) 10.7 % (1.7-9.3); NEUTROPHILS # (AUTO) 4.4 K/uL (1.8-7.7); PLATELET COUNT (AUTO) 183 K/uL (140-450); RED BLOOD CELL COUNT(AUTO) 2.99 MIL/uL (4.20-6.10); RED CELL DISTRIBUTION WIDTH 14.4 % (11.6-13.7); WHITE BLOOD COUNT (AUTO) 8.4 K/uL (4.8-10.8)
[2019-06-12 06:35] LABS: CARBON DIOXIDE 33.6 mmol/L (21-32); POTASSIUM 3.6 mmol/L (3.5-5.1)
[2019-06-12] MEDS: METOCLOPRAMIDE 10 MG/10 ML SYRP UDC GT SCH ×2 (06:35→12:27)
--- NOTE | 2019-06-12 06:35 | NUR ---
GIVEN ANAO GT, RAGLAN. PT COUGHING, GIVEN ROBITUSSIN MD ORDERED. PT TOLERATED WELL.
--- NOTE | 2019-06-12 07:25 | NUR ---
RECEIVED BEDSIDE REPORT FROM PACKING SHED SUPERVISOR NURSE FOR CONTINUITY OF CARE. PT AWAKE AND MOVING AROUND ON BED. PT IS AAOX 1 TO NAME. RESPIRATION EVEN AND UNLABORED ON 3LPM VIA NC. FLACC 0. NO SIGNS OF DISTRESS NOTED. IV ON LFA 20G, CLEAN AND INTACT, INFUSING PER MD ORDER AT THIS TIME. SOFT WRIST RESTRAINT IN PLACE BILATERALLY, NO SIGN OF INJURY ON BOTH ARMS. G-TUBE IN PLACE AND INFUSING JEVITY 1.2 PER MD ORDER. PT IS BEDBOUND AND INCONTINENT. TELE MONITOR ATTACHED. CONTACT PRECAUTION AND C-DIFF PRECAUTION IN PLACE AND SIGN POSTED. SAFETY MEASURES IN PLACE. BED IN LOW POSITION AND CALL LIGHT WITHIN REACH. FALL RISK PROTOCOL IN PLACE AND BED ALARM ACTIVATED.
[2019-06-12 08:00] VITALS: BP 118/69
--- NOTE | 2019-06-12 09:30 | NUR ---
SPOKE WITH LESLYE FROM PICC LINE SERVICE, STATED FREIDA PICC MARGARITO RN WILL CALL FOR ETA.
--- NOTE | 2019-06-12 09:35 | NUR ---
PT HAS A LARGE SOFT BROWN BM, ASSISTED SANITATION WORKER TO CLEAN AND CHANGE PT. PT TOLERATED WELL. SOP2 MONITOR WITH VITAL SIGN MACHINE AT BEDSIDE. NO SIGNS OF DISTRESS NOTED. SAFETY MEASURES IN PLACE. BED IN LOW POSITION AND CALL LIGHT WITHIN REACH. BED ALARM ACTIVATED.
[2019-06-12] MEDS: MUPIROCIN CA NASAL 2% 1GM TUBE NS SCH (10:21)
[2019-06-12] MEDS: SENNA 8.6 MG TAB PO SCH ×2 (10:22→14:32)
[2019-06-12] MEDS: POLYETHYLENE GLYCOL 17 GM/PKT GT SCH (10:22)
[2019-06-12] MEDS: risperiDONE 1 MG TAB GT SCH (10:22)
[2019-06-12] MEDS: FINASTERIDE 5 MG TAB GT SCH (10:23)
[2019-06-12] MEDS: OSELTAMIVIR PHOSPHATE 75 MG CAP GT SCH (10:23)
--- NOTE | 2019-06-12 10:23 | NUR ---
CHECKED G-TUBE RESIDUAL PRIOR TO MED ADMINISTER, RECEIVED 5 ML.ADMINISTERED MEDS VIA G TUBE PER MD ORDER, FLUSHED BEFORE AND AFTER MEDS ADMINISTER, MEDS ED PROVIDED AND REINFORCEMENT NEEDED. PT AWAKE AND RESTING ON BED AT THIS TIME. SPO2 AT 91% VIA NC. FLACC 0. NO SIGNS OF DISTRESS NOTED. TELE MONITOR ATTACHED. SAFETY MEASURES IN PLACE. BED IN LOW POSITION AND CALL LIGHT WITHIN REACH. BED ALARM ACTIVATED.
[2019-06-12] MEDS: FLUTICASONE NASAL 50 MCG/ACTUATION 16 GM BTL NS SCH (10:44)
--- NOTE | 2019-06-12 10:45 | NUR ---
SPRAY FLONASE NASAL IN EACH NARE PER MD ORDER, PT TOLERATED WELL. PT IS RESTING ON BED AT THIS TIME, SPO2 AT 92% ON NC. FLACC 0. NO SIGNS OF DISTRESS NOTED. TELE MONITOR ATTACHED. SAFETY MEASURES IN PLACE. BED ALARM ACTIVATED.
[2019-06-12 12:00] VITALS: BP 100/50
[2019-06-12] MEDS ORDERED: VANCOMYCIN PER PHARMACY MC PRN (12:05)
--- NOTE | 2019-06-12 12:15 | NUR ---
PAGED DR ARROYO ON REGARDS PT'S CONDITION THAT PT DESATURATED TO 85% WITH NC. RT REASSESSED AND CHANGED TO OXIMIZER 9LPM AND SPO2 IS AT 91% AT THIS TIME. PT HAS ONE EPISODE OF BROWN EMESIS. HOLD G-TUBE FEEDING. SITTING PT IN HIGH SANTOS POSITION. DR ARROYO WAS AWARE AND SAID "OK."
--- NOTE | 2019-06-12 12:27 | NUR ---
ADMINISTERED SCHEDULE MEDS VIA GTUBE, MEDS ED PROVIDED AND REINFORCEMENT NEEDED, PT TOLERATED MEDS. SPO2 AT 94% ON 9LPM VIA OXIMIZER. NO SIGNS OF DISTRESS NOTED. SAFETY MEASURES IN PLACE. TELE MONITOR ATTACHED.
[2019-06-12] MEDS ORDERED: MEROPENEM 1,000 MG in NACL 0.9% 100 ML IV SCH (13:00)
--- NOTE | 2019-06-12 13:40 | NUR ---
PT'S SIS KENYON [phone] CALLED AND EXPLAINED TO KENYON THAT DR ORDERED A PICC LINE AND KENYON WAS AWARE. UPDATED KENYON WITH PT'S CURRENT CONDITION.
--- NOTE | 2019-06-12 13:55 | NUR ---
PICC LINE RN INSERTED PICC LINE, PT TOLERATED WELL. NO SIGNS OF DISTRESS NOTED. SPO2 AT 92% WITH OXIMIZER. TELE MONITOR ATTACHED. SAFETY MEASURES IN PLACE. BED IN LOW POSITION AND CALL LIGHT WITHIN REACH. BED ALARM ACTIVATED.
--- NOTE | 2019-06-12 14:57 | NUR ---
DC LFA IV, CANNULA INTACT AND NO BLEEDING AT IV SITE. PT IS RESTING ON BED. NO SIGNS OF DISTRESS NOTED. SPO2 AT 95% AT 9LPM OXIMIZER. FLACC 0. TELE MONITOR ATTACHED. SAFETY MEASURES IN PLACE. BED ALARM ACTIVATED.
--- NOTE | 2019-06-12 15:56 | NUR ---
Vocational Rehabilitation Administrator Note: Per patient's sister Marsha Dennis , she does not have a snf preference and is in agreement with any accepting snf. I faxed inquiry to [facility] for continuity of care. Per Beth Steen from [facility] / , patient has been accepted and may go to room 420A today, accepting physician is . I called patient's sister Marsha back and provided her with the address and phone number of [facility].
--- NOTE | 2019-06-12 17:35 | NUR ---
NOTIFIED PT'S SIS KENYON [phone] THAT PT WILL BE TRANSFER TO [facility] THIS EVENING AND UNDER THE CARE OF DR ARROYO IN ROOM 420A. KENYON WAS AWARE OF TRANSFER. PROVIDED A CALL BACK NUMBER FOR FURTHER QUESTIONS.
--- NOTE | 2019-06-12 17:55 | NUR ---
[phone] AND GAVE FULL REPORT TO PASQUALE PALMA THAT PT IS GOING TO TRANSFER TO HER FACILITY UNDER THE CARE OF Mat DE LA [place] AND IN ROOM 420A. ANSWERED ALL LOUIE'S QUESTIONS AND LOUIE WAS AWARE THAT PT IS GOING TO TRANSFER THERE FOR ABX TREATMENT. PROVIDED A CALL BACK NUMBER FOR FURTHER QUESTION.
--- NOTE | 2019-06-12 18:10 | NUR ---
PT IS GOING TO TRANSFER TO [facility] ACCOMPANIED WITH [facility] TRANSPORT PERSONNEL. COPY CHART PROVIDED. REMOVED ALL ARM BANDS. PICC LINE IN PLACE. HEEL SANDER RUBBER CHANGED PT IN PINK GOWN. REMOVED TELE MONITOR AND RETURN TO TELE AUTOMATION ENGINEER. PT IS GOING TO TRANSFER AT THIS TIME AND PT IS IN STABLE CONDITION.
[2019-06-13] MEDS ORDERED: PHARMACY COMMENTS MC SCH ×2 (09:00)
== END 2019-06-12 18:10 | DRG 871 ==
LOC: MED 08:11 → MTU 10:27
PROVIDERS: ADMIT Preventive Medicine Preventive Medicine/Occupational Environmental Medicine; ATTEND Preventive Medicine Preventive Medicine/Occupational Environmental Medicine
PROC: 0DB68ZX Excision of Stomach, Via Natural or Artificial Opening Endoscopic, Diagnostic (ICD-10-PCS; 2019-06-08)
PROC: 02HV33Z Insertion of Infusion Device into Superior Vena Cava, Percutaneous Approach (ICD-10-PCS; principal; 2019-06-12)
PROC: B548ZZA Ultrasonography of Superior Vena Cava, Guidance (ICD-10-PCS; 2019-06-12)
DX: A41.9 Sepsis, unspecified organism (principal); J18.9 Pneumonia, unspecified organism; J96.00 Acute respiratory failure, unspecified whether with hypoxia or hypercapnia; B19.10 Unspecified viral hepatitis B without hepatic coma; K22.10 Ulcer of esophagus without bleeding; K92.2 Gastrointestinal hemorrhage, unspecified; A04.72 Enterocolitis due to Clostridium difficile, not specified as recurrent; G80.9 Cerebral palsy, unspecified; F90.9 Attention-deficit hyperactivity disorder, unspecified type; H54.7 Unspecified visual loss; Z88.1 Allergy status to other antibiotic agents; Z88.2 Allergy status to sulfonamides; F79 Unspecified intellectual disabilities; I25.10 Atherosclerotic heart disease of native coronary artery without angina pectoris; R13.10 Dysphagia, unspecified; D72.829 Elevated white blood cell count, unspecified; E88.09 Other disorders of plasma-protein metabolism, not elsewhere classified; R73.9 Hyperglycemia, unspecified; K44.9 Diaphragmatic hernia without obstruction or gangrene; D69.6 Thrombocytopenia, unspecified; E83.51 Hypocalcemia; Z22.322 Carrier or suspected carrier of Methicillin resistant Staphylococcus aureus; D64.9 Anemia, unspecified
CPT/HCPCS: 36415; 36600; 71045; 74018; 80048; 80053; 80202; 81003; 82272; 82803; 83605; 83880; 85025; 85651; 86140; 86677; 87040; 87070; 87081; 87086; 87205; 87804; 94640; 96365; 96367; 99291; C1751; J1200; J2185; J2250; J3010; J3370; J7030; J7060; J7620; J8597; Q0092

== ENCOUNTER 2019-07-28 07:49 | Inpatient (IN) | payer OTHER, MEDICAID ==
[~2019-07-28] VITALS: Ht 165.1 cm; Wt 63.5 kg
[~2019-07-28 07:49] MED LIST: ACET-2619 GT; AZEL137S8 NS; BRIM2.5D OP; FINA5TAB1 GT; FLONAS NS; MENT1OIN22 TP; MIRABULK GT; NA P133E RC; RISP1TAB27 GT; RISP2TAB29 GT; SODI126M NS; [UNRECOGNIZED DRUG - CODE] GT; [UNRECOGNIZED DRUG - CODE] GT
--- NOTE | 2019-07-28 07:49 | NUR ---
Patient BIBA ALS accompanied by Colton muro 101, transferred to bed 5. RN evaluating patient at bedside.
[2019-07-28 07:55] VITALS: BP 113/71
[2019-07-28] MEDS ORDERED: NACL 0.9% 500 ML IV SCH (08:09)
--- NOTE | 2019-07-28 08:17 | NUR ---
BIBA W C/O SOB AND WHEEZING X1 DAY. O2 SAT RA 92%. PT ARRIVED TO ED WITH SIMPLE MASK/NEBULIZER WITH ALBUTEROL AT 5 LPM. PT HAS AUDIBLE DRY COUGH & IS TACHYPNEIC AT 30 RR PER MINUTE. WHEEZING NOTED IN BILAT BASES. HR REGULAR AND TACHYCARDIC AT 120BPM. PT IS NON VERBAL. PT IS AFEBRILE AT THIS TIME. BED IN LOW POSITION, SIDE RAIL UP X1. PT PLACED ON BEDSIDE MOTION PICTURE SCENE BUILDER AT THIS TIME.
--- NOTE | 2019-07-28 08:33 | NUR ---
sterile preparation technician at bedside.
--- NOTE | 2019-07-28 09:01 | NUR ---
WARREN COORDINATOR WITH [facility] [phone] ASKED IF WE CAN SWAB FOR INFLUENZA, ---- NOTIFIED
--- NOTE | 2019-07-28 09:04 | NUR ---
Straight catheter inserted utilizing sterile technique. Immediate return of 100 ml yellow urine noted. Urine sample collected and sent to lab. Pt tolerated procedure well.
--- NOTE | 2019-07-28 09:06 | NUR ---
lead manufacturing technician at bedside.
[2019-07-28 09:12] LABS: BASOPHILS % (AUTO) 0.4 % (0.0-2.0); EOSINOPHILS % (AUTO) 0.1 % (0.0-4.0); HEMATOCRIT 30.5 % (36-52); HEMOGLOBIN 9.9 g/dL (12.0-18.0); LYMPHOCYTES # (AUTO) 1.3 K/uL (2.0-11.5); LYMPHOCYTES % (AUTO) 11.8 % (20.5-51.1); MEAN CORPUSCULAR HEMOGLOBIN 25 pg (27-31); MEAN CORPUSCULAR HGB CONC 32 g/dL (33-37); MEAN CORPUSCULAR VOLUME 78.2 fL (80-94); MONOCYTES # (AUTO) 1.3 K/uL (0.8-1.0); MONOCYTES % (AUTO) 12.1 % (1.7-9.3); NEUTROPHILS % (AUTO) 75.6 % (42.2-75.2); PLATELET COUNT (AUTO) 142 K/uL (140-450); RED BLOOD CELL COUNT(AUTO) 3.91 MIL/uL (4.20-6.10); RED CELL DISTRIBUTION WIDTH 16.9 % (11.6-13.7); WHITE BLOOD COUNT (AUTO) 10.6 K/uL (4.8-10.8)
[2019-07-28 09:18] LABS: APPEARANCE,URINE CLEAR (CLEAR); BILIRUBIN,URINE NEGATIVE (NEGATIVE); BLOOD, URINE NEGATIVE (NEGATIVE); COLOR,URINE YELLOW (YELLOW); LEUKOCYTE ESTERASE ,URINE NEGATIVE (NEGATIVE); NITRITE, URINE NEGATIVE (NEGATIVE); PH,URINE 6.5 (5.0-9.0); UGLUCOSE NEGATIVE (NEGATIVE)
[2019-07-28 09:29] LABS: PROTHROMBIN TIME 10.5 secs (10.8-13.4)
[2019-07-28 09:31] LABS: ALBUMIN 2.7 g/dL (3.4-5.0); CARBON DIOXIDE 29.7 mmol/L (21-32); CREATININE 0.8 mg/dL (0.6-1.3); POTASSIUM 3.7 mmol/L (3.5-5.1); TOTAL BILIRUBIN 0.4 mg/dL (0.0-1.0)
--- NOTE | 2019-07-28 09:43 | NUR ---
Dr. Hendricks is evaluating the patient at bedside.
[2019-07-28] MEDS ORDERED: ALBUTEROL SULFATE/IPRATROPIU 3 ML SOL IH ONE (09:45)
--- NOTE | 2019-07-28 10:10 | NUR ---
CAREGIVER AT BEDSIDE, CARIDAD
[2019-07-28] MEDS ORDERED: PIPERACILLIN/TAZOBACTAM 3.375 GM in DEXTROSE 5% 50 ML IV ONE (10:20)
[2019-07-28] MEDS ORDERED: PIPERACILLIN/TAZOBACTAM 3.375 GM VIAL IV ONE (10:38)
[2019-07-28 11:10] VITALS: BP 111/78
--- NOTE | 2019-07-28 11:10 | NUR ---
RECEIVED PATIENT FROM ED NURSE, NAHOMY, VIA VAISHNAVI. PATIENT IS AWAKE, AAOX0, BLIND, MENTALLY DISABLED. RESPIRATIONS EVEN, UNLABORED, ON 2L O2 VIA NC. EXPIRATORY WHEEZE NOTED. VISIBLE CHEST RISE NOTED. ON TELE MONITORING. ABDOMEN SOFT, NONTENDER. G-TUBE IN PLACE. SKIN WARM, DRY, AND INTACT. IV IN THE LEFT AC G20, SALINE LOCK. PATIENT HAS A RIGHT MITTEN THAT CAME FROM PATIENT'S BOARDING HOME. PATIENT IS BEDBOUND. BED IN LOW POSITION. CALL LIGHT IS WITHIN REACH. WILL CONTINUE TO MONITOR
--- NOTE | 2019-07-28 11:15 | NUR ---
MRSA NARES SWAB COLLECTED.
--- NOTE | 2019-07-28 11:19 | NUR ---
Patient will be admitted to care of DR. ARROYO. Admited to TELEMETRY. Will go to room 122B. Belongings list completed. Report to PASQUALE DUMONT.
--- NOTE | 2019-07-28 12:40 | NUR ---
PATIENT HAS CONTINUOUS COUGHT, NONPRODUCTIVE. WILL CONTINUE TO MONITOR. RIGHT MITTEN RESTRAINTS IN PLACE
--- NOTE | 2019-07-28 12:41 | NUR ---
MITTEN RESTRAINTS ORDERED. FNS CONSULT ORDERED.
--- NOTE | 2019-07-28 12:59 | NUR ---
PATIENT HAS BEEN SCREENED AND CATEGORIZED HIGH NUTRITION RISK. PATIENT WILL BE SEEN WITHIN 1-2 DAYS OF ADMISSION. 07/29/2019-07/30/[address]
--- NOTE | 2019-07-28 13:06 | NUR ---
PER FNS, RECOMMENDS JEVITY 1.2, GOAL IS 55, START AT RATE 25 AND ADVANCE TOLERATED, WATER FLUSH 150 ML/HR
--- NOTE | 2019-07-28 13:18 | NUR ---
07/28/2019 RD INITIAL ASSESSMENT COMPLETED PLEASE REFER TO NUTRITION ASSESSMENT UNDER CARE ACTIVITY FOR ESTIMATED NUTRITIONAL NEEDS. RD RECOMMENDATIONS: WHEN MEDICALLY APPROPRIATE, RECOMMEND JEVITY 1.2 AT GOAL RATE OF 55 ML/HR. START AT 25 ML/HR AND ADVANCE TOLERATED. -THIS WILL PROVIDE 1320 ML TOTAL VOLUME, 1584 KCAL, 73 GM OF PROTEIN, AND 1065 ML OF FREE WATER. 2. RECOMMEND 150 ML OF FREE WATER FLUSH Q6H. 3. RD WILL F/U 2-3 DAYS; HIGH RISK. CHELA JAIN, RD
--- NOTE | 2019-07-28 13:31 | NUR ---
PATIENT IS BEING CLEANED AND REPOSITIONED AT THIS TIME.
--- NOTE | 2019-07-28 14:30 | NUR ---
PER CARIDAD, PATIENT'S CAREGIVER. PATIENT HAS A ISOSOURCE 1.5 FEEDING AT [facility].
--- NOTE | 2019-07-28 14:37 | NUR ---
PAGED DR. ARROYO. WILL WAIT FOR CALL BACK
--- NOTE | 2019-07-28 14:50 | NUR ---
ЕКАТЕРИНА GIORDANO FROM [facility] LEFT PHONE NUMBER [phone] FOR ANY QUESTIONS.
--- NOTE | 2019-07-28 14:58 | NUR ---
INFORMED DR. ARROYO REGARDING'S G-TUBE FEEDING. HE WILL PUT THE ORDER
[2019-07-28] MEDS ORDERED: ACETAMINOPHEN 325 MG TAB GT PRN (15:05)
[2019-07-28] MEDS ORDERED: SODIUM PHOSPHATE 118 ML ENEM RC PRN (15:05)
[2019-07-28] MEDS ORDERED: ALBUTEROL 0.083% 2.5 MG/3 ML NEBU INH PRN (15:05)
[2019-07-28] MEDS ORDERED: FLUTICASONE NASAL 50 MCG/ACTUATION 16 GM BTL NS PRN (15:05)
[2019-07-28] MEDS ORDERED: ONDANSETRON 4 MG/2 ML VIAL IVP PRN (15:05)
[2019-07-28] MEDS ORDERED: guaiFENesin 20 MG/ML UDC GT PRN (15:05)
[2019-07-28] MEDS ORDERED: SODIUM CHLORIDE 0.65% 45 ML BTL NS PRN (15:05)
[2019-07-28] MEDS ORDERED: [UNRECOGNIZED DRUG - REMARK] GT PRN (15:05)
[2019-07-28] MEDS ORDERED: LORazepam 2 MG/ML VIAL IVP PRN (15:05)
--- NOTE | 2019-07-28 15:22 | NUR ---
REPOSITIONED PATIENT. REMOVED RESTRAINTS FOR 15 MINUTES. NO SIGNS OF INJURY. SKIN INTACT. WILL CONTINUE TO MONITOR
--- NOTE | 2019-07-28 15:30 | NUR ---
STARTED RUNNING JEVITY 1.2 AT RATE 25 ML/HR. H20 FLUSH 150 ML/HR Q6H. WILL CHECK FOR RESIDUAL FOR AN HOUR IF PATIENT IS TOLERATING FEEDING. WILL CONTINUE TO MONITOR
[2019-07-28 16:00] VITALS: BP 114/81
--- NOTE | 2019-07-28 16:08 | NUR ---
GIVEN ROBITUSSIN FOR COUGH VIA GT. GASTRIC RESIDUAL OF 5 ML. EXPLAINED MEDICATION. BED IN LOW POSITION. CALL LIGHT IS WITHIN REACH. WILL CONTINUE TO MONITOR
--- NOTE | 2019-07-28 16:12 | NUR ---
VITAL SIGNS CHECK. COUGH INTERMITTENTLY AND NONPRODUCTIVE. BED IN LOW POSITION. CALL LIGHT IS WITHIN REACH. WILL CONTINUE TO MONITOR
--- NOTE | 2019-07-28 17:06 | NUR ---
CHECKED GASTRIC RESIDUAL. 50 ML. WILL CONTINUE FEEDING. BED IN LOW POSITION. CALL LIGHT IS WITHIN REACH. WILL CONTINUE TO MONITOR.
--- NOTE | 2019-07-28 17:58 | NUR ---
PATIENT IS LAYING IN BED. G-TUBE FEEDING RUNNING. NO SIGNS OF DISTRESS NOTED. BED IN LOW POSITION. CALL LIGHT IS WITHIN REACH. WILL CONTINUE OT MONITOR.
[2019-07-28] MEDS: IPRATROPIUM 0.02% 0.5 MG/2.5 ML NEBU INH SCH (19:00)
--- NOTE | 2019-07-28 19:10 | NUR ---
ENDORSED PATIENT TO THE SAMPLE SELECTOR NURSE, CARL, FOR CONTINUITY OF CARE. PATIENT IS AWAKE. NO SIGNS OF DISTRESS NOTED. VISIBLE CHEST RISE. PATIENT IS IN STABLE CONDITION
--- NOTE | 2019-07-28 19:10 | NUR ---
RECEIVED PATIENT FROM AM SHIFT NURSE FOR CONTINUITY OF CARE. RESPIRATIONS EVEN,UNLABORED. SKIN WARM, DRY TO TOUCH. SALINE LOCK TO LEFT AC 20G PATENT/INTACT. ABDOMEN SOFT, NONTENDER. GT PATENT. 100 CC OF RESIDUAL NOTED. INCONTINENT CARE PROVIDED. FLACC 0. NO S/SX ACUTE DISTRESS. CONTINUES ON ISOLATION PRECAUTIONS. CALL LIGHT WITHIN REACH. WILL CONTINUE TO MONITOR.
--- NOTE | 2019-07-28 19:14 | NUR ---
UNABLE TO GIVE BREATHING TX AT THE MOMENT. PT IS GETTING CLEANED UP. WILL GO BACK IN ABOUT 30 MIN TO ADMINISTRER TX.
[2019-07-28 20:00] VITALS: BP 115/67
[2019-07-28] MEDS: POLYETHYLENE GLYCOL 17 GM/PKT GT SCH (21:00)
[2019-07-28] MEDS ORDERED: AZELASTINE HCL NS SCH (21:00)
[2019-07-28] MEDS ORDERED: risperiDONE 1 MG TAB GT SCH (21:00)
[2019-07-28] MEDS: risperiDONE 1 MG TAB GT SCH (21:08)
[2019-07-28] MEDS: methylPREDNISolone SS 40 MG/ML VIAL IVP SCH (21:08)
--- NOTE | 2019-07-28 21:10 | NUR ---
PATIENT AWAKE AND IN STABLE CONDITION. NO C/O PAIN. NO S/SX ACUTE DISTRESS. 100 ML OF RESIDUAL NOTED. TUBE FEEDING HELD. CALL LIGHT WITHIN REACH. WILL CONTINUE TO MONITOR.
--- NOTE | 2019-07-28 22:10 | NUR ---
RECHECKED RESIDUAL AT 30 ML. RESTARTED TUBE FEEDING. PATIENT AWAKE AND IN STABLE CONDITION. NO C/O PAIN. NO S/SX ACUTE DISTRESS. CALL LIGHT WITHIN REACH. WILL CONTINUE TO MONITOR.
[2019-07-29] VITALS: BP 118/73
--- NOTE | 2019-07-29 | NUR ---
RECHECKED RESIDUAL AT 30 ML INCREASED FEEDING BY 10 ML, CURRENTLY RUNNING JEVITY 1.2 AT 35 ML/HR. PATIENT ASLEEP AND IN STABLE CONDITION. NO C/O PAIN. NO S/SX ACUTE DISTRESS. CALL LIGHT WITHIN REACH. WILL CONTINUE TO MONITOR.
[2019-07-29] MEDS: IPRATROPIUM 0.02% 0.5 MG/2.5 ML NEBU INH SCH ×4 (01:11→20:17)
--- NOTE | 2019-07-29 01:19 | NUR ---
HHN TX GIVEN. PT WAS ON RA SAT 94%. B/S WERE CLEAR. WILL CONT TO MONITOR
--- NOTE | 2019-07-29 02:22 | NUR ---
CHECKED RESIDUAL AT 120 ML. HELD FEEDING AT THIS TIME. NO C/O PAIN. NO S/SX ACUTE DISTRESS. CALL LIGHT WITHIN REACH. WILL CONTINUE TO MONITOR.
--- NOTE | 2019-07-29 03:22 | NUR ---
CHECKED GT RESIDUAL AT 60 ML. RESTARTED FEEDING. HOB UP 30 DEGREES. PATIENT RESTING COMFORTABLY. NO C/O PAIN. NO S/SX ACUTE DISTRESS. CALL LIGHT WITHIN REACH. WILL CONTINUE TO MONITOR.
[2019-07-29 04:00] VITALS: BP 94/88
[2019-07-29] MEDS: methylPREDNISolone SS 40 MG/ML VIAL IVP SCH ×3 (04:26→20:51)
--- NOTE | 2019-07-29 05:19 | NUR ---
RECHECKED RESIDUAL AT 130 ML. HELD FEEDING. NO S/SX ACUTE DISTRESS. CALL LIGHT WITHIN REACH. WILL CONTINUE TO MONITOR.
--- NOTE | 2019-07-29 06:19 | NUR ---
MADE ROUNDS. PATIENT ASLEEP AND IN STABLE CONDITION. RECHECKED GT RESIDUAL AT 70 ML. RESTARTED FEEDING. RT AT BEDSIDE GIVING BREATHING TREATEMTN. NO C/O PAIN. NO S/SX ACUTE DISTRESS. CALL LIGHT WITHIN REACH. WILL CONTINUE TO MONITOR.
[2019-07-29 06:58] LABS: HEMATOCRIT 30.4 % (36-52); MEAN CORPUSCULAR HEMOGLOBIN 26 pg (27-31); MEAN CORPUSCULAR HGB CONC 33 g/dL (33-37); MEAN CORPUSCULAR VOLUME 77.9 fL (80-94); PLATELET COUNT (AUTO) 143 K/uL (140-450); RED CELL DISTRIBUTION WIDTH 17.3 % (11.6-13.7); WHITE BLOOD COUNT (AUTO) 10.6 K/uL (4.8-10.8)
[2019-07-29 07:09] LABS: ANION GAP 10.4 (8-16); CARBON DIOXIDE 29.7 mmol/L (21-32); CREATININE 0.7 mg/dL (0.6-1.3); POTASSIUM 4.1 mmol/L (3.5-5.1)
--- NOTE | 2019-07-29 07:20 | NUR ---
Received report from pm nurse Jo-Ann. Pt resting in bed, awake, no signs of distress, respirations even & nonlabored in room air. Bilat mittens in place. GT intact with ongoing Jevity 1.2 @ 45ml/hr. HOB elevated @ 30. Left AC IV intact & asymptomatic.
[2019-07-29 08:00] VITALS: BP 98/50
--- NOTE | 2019-07-29 08:00 | NUR ---
GT residual = 110ml. GT feeding held at this time. Bowel sounds present on all quads. No vomiting episodes. HOB kept elevated @ 30.
[2019-07-29 08:54] LABS: BASOPHILS % (MANUAL) 0 % (0-2); EOSINOPHILS % (MANUAL) 0 % (0-4); LYMPHOCYTES % (MANUAL) 7 % (20-46); MONOCYTES % (MANUAL) 2 % (5-12)
[2019-07-29] MEDS ORDERED: MENTHOL/ZINC OXIDE 113 GM TUBE TP SCH ×3 (09:00)
--- NOTE | 2019-07-29 09:00 | NUR ---
Current GT residual 105ml. GT feeding Jevity 1.2 resumed @ 45ml/hr. HOB kept elevated @ 30. Abd soft with active bowel sounds on all quads. No vomiting.
[2019-07-29] MEDS: FINASTERIDE 5 MG TAB GT SCH (09:17)
[2019-07-29] MEDS: POLYETHYLENE GLYCOL 17 GM/PKT GT SCH ×2 (09:17→20:51)
[2019-07-29] MEDS: risperiDONE 1 MG TAB GT SCH ×2 (09:18→20:51)
[2019-07-29] MEDS: LEVOFLOXACIN 500 MG TAB GT SCH (09:18)
[2019-07-29] MEDS ORDERED: CRUSHER, PILL MC ONE (09:24)
--- NOTE | 2019-07-29 10:38 | NUR ---
CONTACTED LESLYE-PICC LINE SERVICE REGARDING PICC LINE PLACEMENT, DIONY-PICC LINE RN WILL CALL FOR ETA. RAYNA-RN ASSIGNED MADE AWARE.
[2019-07-29 12:00] VITALS: BP 96/65
--- NOTE | 2019-07-29 14:00 | NUR ---
Current gastric residual = 90ml. GT feeding rate of Jevity 1.2 increased from 45ml/h to 55ml/h. HOB kept elevated @ 30. No vomiting noted.
--- NOTE | 2019-07-29 14:21 | NUR ---
Reported by REAMING MACHINE OPERATOR that patient has not voided since 0800 this am. >270ml scanned with bladder scanner. Bladder remains soft with palpation. Pt repositioned. Will cont to monitor.
[2019-07-29] MEDS ORDERED: PNEUMOCOCCAL VACCINE 23 MCG/0.5 ML VIAL IMVAC SCH (15:20)
[2019-07-29] MEDS ORDERED: INFLUENZA VACCINE QUAD 0.5 ML SYR IMVAC PRN (15:20)
--- NOTE | 2019-07-29 15:30 | NUR ---
Informed Dr Landa pt has not had any urine output since 0800 this am, with >270ml urine detected from bladder scan. Verbal order received to insert cruz catheter.
[2019-07-29 16:00] VITALS: BP 104/64
--- NOTE | 2019-07-29 16:00 | NUR ---
Inserted indwelling cruz cath & drained 320ml clear anneliese urine. No bladder distention noted upon palpation.
--- NOTE | 2019-07-29 19:25 | NUR ---
RECEIVED BEDSIDE REPORT FROM AM SHIFT NURSE. PATIENT IS LYING IN BED, AWAKE. PATIENT IS NON-VERBAL. NO SOB OR DISTRESS NOTED, ON ROOM AIR. IV ACCESS ON LEFT AC 20 GAUGE, PATENT AND INTACT. G-TUBE IN PLACE, PATENT AND INTACT. LYNN CATHETER IN PLACE, DRAINING WELL. BED IN LOW, SAFETY MEASURES IN PLACE. INITIAL ASSESSMENT DONE. CALL LIGHT PLACED WITHIN PATIENT REACH. WILL CONTINUE TO MONITOR PATIENT.
[2019-07-29 20:30] VITALS: BP 98/56
--- NOTE | 2019-07-29 23:25 | NUR ---
ROUNDS DONE. VISIBLE CHEST RISE AND FALL NOTED. CALL LIGHT PLACED WITHIN PATIENT REACH. WILL CONTINUE TO MONITOR PATIENT.
--- NOTE | 2019-07-30 00:15 | NUR ---
PATIENT FEEDING BOTTLE AND FEEDING TUBES CHANGED AT THIS TIME. PATIENT TOLERATING FEEDING WELL. WILL CONTINUE TO MONITOR PATIENT.
[2019-07-30 00:30] VITALS: BP 124/75
--- NOTE | 2019-07-30 00:30 | NUR ---
VITALS TAKEN AT THIS TIME. NO DISTRESS NOTED. WILL CONTINUE TO MONITOR PATIENT.
--- NOTE | 2019-07-30 00:30 | NUR ---
VITALS TAKEN AT THIS TIME. NO DISTRESS NOTED. WILL CONTINUE TO MONITOR PATIENT.
--- NOTE | 2019-07-30 02:15 | NUR ---
ROUNDS DONE. VISIBLE CHEST RISE AND FALL NOTED. CALL LIGHT WITHIN PATIENT REACH. WILL CONTINUE TO MONITOR PATIENT.
--- NOTE | 2019-07-30 04:03 | NUR ---
VITAL SIGNS TAKEN AT THIS TIME. NO DISTRESS NOTED. CALL LIGHT WITHIN PATIENT REACH. WILL CONTINUE TO MONITOR PATIENT.
[2019-07-30 04:26] VITALS: BP 104/60
[2019-07-30] MEDS: methylPREDNISolone SS 40 MG/ML VIAL IVP SCH (04:40)
[2019-07-30 06:05] LABS: ANION GAP 9.5 (8-16); CARBON DIOXIDE 28.8 mmol/L (21-32); CREATININE 0.7 mg/dL (0.6-1.3); POTASSIUM 4.3 mmol/L (3.5-5.1)
--- NOTE | 2019-07-30 06:16 | NUR ---
PATIENT IN STABLE CONDITION. CALL LIGHT PLACED WITHIN PATIENT REACH. WILL ENDORSE TO AM SHIFT NURSE FOR CONTINUITY OF CARE.
[2019-07-30 06:34] LABS: BASOPHILS % (AUTO) 0.1 % (0.0-2.0); HEMATOCRIT 29.4 % (36-52); HEMOGLOBIN 9.6 g/dL (12.0-18.0); LYMPHOCYTES # (AUTO) 0.9 K/uL (2.0-11.5); LYMPHOCYTES % (AUTO) 6.3 % (20.5-51.1); MEAN CORPUSCULAR HEMOGLOBIN 26 pg (27-31); MEAN CORPUSCULAR HGB CONC 33 g/dL (33-37); MEAN CORPUSCULAR VOLUME 78.7 fL (80-94); MONOCYTES # (AUTO) 0.7 K/uL (0.8-1.0); MONOCYTES % (AUTO) 5.2 % (1.7-9.3); NEUTROPHILS # (AUTO) 12.6 K/uL (1.8-7.7); NEUTROPHILS % (AUTO) 88.4 % (42.2-75.2); PLATELET COUNT (AUTO) 153 K/uL (140-450); RED BLOOD CELL COUNT(AUTO) 3.74 MIL/uL (4.20-6.10); RED CELL DISTRIBUTION WIDTH 17.3 % (11.6-13.7); WHITE BLOOD COUNT (AUTO) 14.3 K/uL (4.8-10.8)
[2019-07-30] MEDS: IPRATROPIUM 0.02% 0.5 MG/2.5 ML NEBU INH SCH ×3 (07:03→19:00)
--- NOTE | 2019-07-30 07:05 | NUR ---
RECEIVED PATIENT FROM NURSE INTERN NURSE FOR CONTINUITY OF CARE. PATIENT IS AAOX0, APHASIC, RESPIRATIONS EVEN AND UNLABORED, ON 2L O2 VIA NC. VISIBLE CHEST RISE. ON TELE MONITORING. ABDOMEN SOFT, ROUND, AND NONTENDER. GT FEEDING JEVITY 1.2 RUNNING AT 55 ML/HR, H20 FLUSH 150 ML/HR Q6H. SKIN WARM, DRY, AND INTACT. IV IN THE LEFT AC 20G, SALINE LOCK. IV PATENT AND FLUSHED WELL. PATIENT IS BEDBOUND. MITTEN RESTRAINTS IN PLACE. NO SIGNS OF INJURY. BED IN LOW POSITION. FALL AND CONTACT PRECAUTIONS. WILL CONTINUE TO MONITOR.
[2019-07-30 08:00] VITALS: BP 103/53
[2019-07-30] MEDS: FINASTERIDE 5 MG TAB GT SCH (08:58)
[2019-07-30] MEDS: risperiDONE 1 MG TAB GT SCH ×2 (08:58→21:09)
[2019-07-30] MEDS: POLYETHYLENE GLYCOL 17 GM/PKT GT SCH ×2 (08:59→21:00)
[2019-07-30] MEDS: LEVOFLOXACIN 500 MG TAB GT SCH (08:59)
--- NOTE | 2019-07-30 08:59 | NUR ---
GIVEN MORNING MEDICATIONS VIA GTUBE. GASTRIC RESIDUAL OF 5ML. PATIENT IS TOLERATING TUBE FEEDING. EXPLAINED MEDICATIONS. BED IN LOW POSITION. CALL LIGHT IS WITHIN REACH. WILL CONTINUE TO MONITOR
--- NOTE | 2019-07-30 10:50 | NUR ---
DC PLANN[age] YRS OLD MALE PATIENT WAS ADMITTED FROM [facility] WITH A DX OF RESPIRATORY DISTRESS. PT HAS A HX OF GERD, ASTHMA, DYSPHAGIA G-TUBE . C XRAY SHOWED LOW LUNG VOLUMES WITH MILD INTERSTITIAL EDEMA , BLOOD AND URINE CULTURE PENDING. SEEN BY DR DAVID JONES TO CONTINUE WITH LEVAQUIN GT ABX, WEANING OFF IV STEROIDS. CONTINUE BREATHING TREATMENT AND ORDERED TO INSERT LYNN CATHETER FOR BLADDER DYSFUNCTION. DC PLAN TO GO BACK TO [facility] WHEN STABLE. CM TO FOLLOW. Addendum: 07/31/19 at 1146 by Delmi Grijalva CM DC PLANNING: CALLED DR CRUZ Rivero REGARDING THE DC PLAN PT'S VITALS STABLE CLEARED BY EVARISTO DAY DR TO DC BACK TO [facility] WITH LEVAQUIN 500MG VIA G-TUBE. NOTIFIED BELGICA GIORDANO, WILL CALL [facility] FOR TRANSPORT BACK TO [facility].
--- NOTE | 2019-07-30 10:54 | NUR ---
PATIENT IS SLEEPING AT THIS TIME. VISIBLE CHEST RISE NOTED. NO SIGNS OF DISTRESS NOTED. BED IN LOW POSITION. CALL LIGHT IS WITHIN REACH. WILL CONTINUE TO MONITOR
--- NOTE | 2019-07-30 11:41 | NUR ---
RESTRAINTS ORDER IS RENEWED.
--- NOTE | 2019-07-30 11:44 | NUR ---
PATIENT IS BEING CHANGED AND REPOSITIONED AT THIS TIME. ONE BM, SOFT. MITTENS ON.
[2019-07-30 12:00] VITALS: BP 108/65
--- NOTE | 2019-07-30 12:02 | NUR ---
CHANGED GTUBE FEEDING DRESSING.
--- NOTE | 2019-07-30 12:08 | NUR ---
City Engineer Note: Basic Screen: Yes High Risk DC Screen [place]: KENYON Givens Relationship: SISTER Pre-Admission Living Arrangements: Other Other: [facility] Prior ADL Needs Assistance Current Home Health Name/Tel: N/A Current DME/02 Name/Tel: HOSPITAL BED Current Hospice Name/Tel: N/A Current Dialysis Name/Tel: N/A Healthcare Decision Maker: Community/briefcase sewer Other: [facility] Advance Directive No Physician Orders for Life Sustaining Treatment Form No Discipline: Case Mgt/Social Svcs Tentative Discharge Plan/Destination: Other Other: [facility] Will require assistance post discharge: No Referred to Archivist Military History: No Tentative Discharge Plan Summary: Patient is a 59-year-old male admitted for respiratory distress. Patient has PMHX of asthma, GERD, and dysphagia. Patient was admitted from [facility]. SW contacted Judy, software administrator for [facility] [phone]. Per Judy, patient has no conservator. Judy stated that patient's sister was involved in his care. Patient's healthcare decision maker would be and Anna Marie Pritchett [facility] Worker [phone]. Tentative discharge plan is for patient to return to [facility]. No further needs identified. Signature: LIZZIE Conteh Date: Jul 30, 2019 Time: 12:06
--- NOTE | 2019-07-30 12:23 | NUR ---
VITAL SIGNS CHECK. FLACC 0. WILL CONTINUE TO MONITOR
--- NOTE | 2019-07-30 13:17 | NUR ---
PATIENT IS AWAKE AND CALM. NO SIGNS OF DISTRESS NOTED. BED IN LOW POSITION. CALL LIGHT IS WITHIN REACH. WILL CONTINUE TO MONITOR
--- NOTE | 2019-07-30 14:31 | NUR ---
PATIENT IS SLEEPING AT THIS TIME. NO SIGNS OF DISTRESS NOTED. BED IN LOW POSITION. CALL LIGHT IS WITHIN REACH. WILL CONTINUE TO MONITOR
[2019-07-30 16:00] VITALS: BP 118/70
--- NOTE | 2019-07-30 16:56 | NUR ---
HANG NEW G-TUBE FEEDING JEVITY 1.2 AT RATE 55 ML/HR, WATER FLUSH 150 ML/HR Q6H. GASTRIC RESIDUAL IS 5 ML. PATIENT IS TOLERATING GTUBE FEEDING. WILL CONTINUE TO MONITOR
--- NOTE | 2019-07-30 17:30 | NUR ---
CRITICAL LAB: MRSA NARES POSITIVE. WILL INFORM DR. ARROYO
--- NOTE | 2019-07-30 18:12 | NUR ---
PATIENT IS SLEEPING AT THIS TIME. NO SIGNS OF DISTRESS NOTED. BED IN LOW POSITION. CALL LIGHT IS WITHIN REACH. WILL CONTINUE TO MONITOR
--- NOTE | 2019-07-30 19:13 | NUR ---
ENDORSED PATIENT TO THE GROUNDMAN NURSE FOR CONTINUITY OF CARE. FLACC 0. NO SOB. PATIENT IS IN STABLE CONDITION
--- NOTE | 2019-07-30 19:14 | NUR ---
RECEIVED BEDSIDE REPORT FROM AM SHIFT NURSE. PATIENT IS LYING IN BED, AWAKE AND ALERT. NO SOB OR DISTRESS NOTED. IV ACCESS ON LEFT AC 20 GAUGE, SALINE LOCK. PATENT AND INTACT. G-TUBE IN PLACE, PATENT AND INTACT. LYNN CATHETER INTACT. DRAINING WELL. SKIN INTACT. BED IN LOW, SAFETY MEASURES IN PLACE. INITIAL ASSESSMENT DONE. CALL LIGHT PLACED WITHIN PATIENT REACH. WILL CONTINUE TO MONITOR PATIENT.
[2019-07-30 20:20] VITALS: BP 123/82
--- NOTE | 2019-07-30 21:25 | NUR ---
ROUNDS DONE. VISIBLE CHEST RISE AND FALL NOTED. WILL CONTINUE TO MONITOR PATIENT.
[2019-07-30] MEDS ORDERED: MUPIROCIN CA NASAL 2% 1GM TUBE NS SCH (23:00)
[2019-07-30] MEDS ORDERED: CHLORHEXADINE GLUC 2% CLOTH TP SCH (23:00)
[2019-07-31 00:30] VITALS: BP 139/79
--- NOTE | 2019-07-31 00:30 | NUR ---
VITALS TAKEN AT THIS TIME. NO DISTRESS NOTED. WILL CONTINUE TO MONITOR PATIENT.
[2019-07-31] MEDS: IPRATROPIUM 0.02% 0.5 MG/2.5 ML NEBU INH SCH ×2 (01:56→07:04)
--- NOTE | 2019-07-31 02:49 | NUR ---
ROUNDS DONE. VISIBLE CHEST RISE AND FALL NOTED. CALL LIGHT WITHIN PATIENT REACH. WILL CONTINUE TO MONITOR PATIENT.
--- NOTE | 2019-07-31 04:28 | NUR ---
VITALS TAKEN AT THIS TIME. NO DISTRESS NOTED. WILL CONTINUE TO MONITOR PATIENT.
[2019-07-31 04:30] VITALS: BP 107/60
[2019-07-31 06:12] LABS: BASOPHILS % (AUTO) 0.1 % (0.0-2.0); HEMATOCRIT 32.7 % (36-52); HEMOGLOBIN 10.5 g/dL (12.0-18.0); LYMPHOCYTES # (AUTO) 2.4 K/uL (2.0-11.5); LYMPHOCYTES % (AUTO) 16.9 % (20.5-51.1); MEAN CORPUSCULAR HEMOGLOBIN 26 pg (27-31); MEAN CORPUSCULAR HGB CONC 32 g/dL (33-37); MEAN CORPUSCULAR VOLUME 79.5 fL (80-94); MONOCYTES % (AUTO) 7.2 % (1.7-9.3); NEUTROPHILS # (AUTO) 10.9 K/uL (1.8-7.7); NEUTROPHILS % (AUTO) 75.8 % (42.2-75.2); PLATELET COUNT (AUTO) 157 K/uL (140-450); RED BLOOD CELL COUNT(AUTO) 4.12 MIL/uL (4.20-6.10); RED CELL DISTRIBUTION WIDTH 17.8 % (11.6-13.7); WHITE BLOOD COUNT (AUTO) 14.4 K/uL (4.8-10.8)
[2019-07-31 06:16] LABS: CARBON DIOXIDE 32.5 mmol/L (21-32); CREATININE 0.7 mg/dL (0.6-1.3); POTASSIUM 3.5 mmol/L (3.5-5.1)
--- NOTE | 2019-07-31 06:58 | NUR ---
PATIENT IN STABLE CONDITION. CALL LIGHT WITHIN PATIENT REACH. WILL ENDORSE TO AM SHIFT NURSE FOR CONTINUITY OF CARE.
--- NOTE | 2019-07-31 07:07 | NUR ---
RECEIVED BEDSIDE REPORT FROM ASSEMBLER PRODUCT NURSE ALIZA FOR CONTINUITY OF CARE. PT IS AWAKE AND RECEIVING BREATHING TREATMENT FROM RT AT THIS TIME. PT IS AAOX 0, BLIND BILATERALLY. RESPIRATION EVEN AND UNLABORED ON RA. NO SIGNS OF DISTRESS NOTED. IV ON LAC 20G, CLEAN AND INTACT, SL. SKIN DRY AND CLEAN. G-TUBE IN PLACE AND RUNNING JEVITY 1.2 AT 55 ML/HR. PT IS INCONTINENT AND LYNN IN PLACE, DRAINING YELLOW URINE WITH GRAVITY. MITTENS ON HAND BILATERALLY. TELE MONITOR ATTACHED. SAFETY MEASURES IN PLACE. FALL RISK PROTOCOL IN PLACE. BED IN LOW POSITION AND CALL LIGHT WITHIN REACH.
--- NOTE | 2019-07-31 07:35 | NUR ---
FOUND PT REMOVED MITTENS AND ATTEMPTED TO REMOVE G-TUBE AND LYNN. APPLIED ABDOMEN BAND TO PROTECT G-TUBE AND EDUCATED PT NOT TO REMOVE TUBINGS, REINFORCEMENT NEEDED DUE TO MENTAL STATUS. APPLIED MITTEN ON BOTH HANDS. SAFETY MEASURES IN PLACE. BED IN LOW POSITION AND CALL LIGHT WITHIN REACH. BED ALARM ACTIVATED.
[2019-07-31 08:00] VITALS: BP 127/68
--- NOTE | 2019-07-31 08:06 | NUR ---
PT HAS 1 MODERATE SIZE SOFT SOLID BM. PETROLEUM INSPECTOR AND STUDENT NURSE ARE CLEANING AND CHANGING PT AT THIS TIME. NO SIGNS OF DISTRESS NOTE. SAFETY MEASURES IN PLACE. TELE MONITOR ATTACHED.
[2019-07-31] MEDS: POLYETHYLENE GLYCOL 17 GM/PKT GT SCH (09:38)
[2019-07-31] MEDS: LEVOFLOXACIN 500 MG TAB GT SCH (09:39)
[2019-07-31] MEDS: FINASTERIDE 5 MG TAB GT SCH (09:39)
[2019-07-31] MEDS: risperiDONE 1 MG TAB GT SCH (09:39)
--- NOTE | 2019-07-31 09:39 | NUR ---
CHECKED G-TUBE RESIDUAL PRIOR TO MEDS ADMIT, RECEIVED LESS THAN < 5 ML. ADMINISTERED AM SCHEDULED MEDS PER MD ORDER, FLUSHED BEFORE AND AFTER MEDS ADMINISTERED, MEDS EDUCATION PROVIDED AND REINFORCEMENT NEEDED DUE TO MENTAL STATUS. PT IS AWAKE AND MOVING AROUND ON BED. FLACC 0. RESPIRATION EVEN AND UNLABORED ON RA. INTERMITTENT NONPRODUCTIVE COUGHS NOTED. NO SIGNS OF DISTRESS NOTED. TELE MONITOR ATTACHED. ABDOMINAL BAND WRAPPED AROUND G-TUBE AND MITTENS IN PLACE. NO SIGNS OF INJURY AND CAPILLARY REFILL < [address]AFETY MEASURES IN PLACE. HOB ELEVATED TO 30 DEGREE. BED ALARM ACTIVATED.
--- NOTE | 2019-07-31 10:50 | NUR ---
DURING HOURLY ROUNDING, FOUND PT REMOVED, MITTENS, GOWN, ABD BAND, TELE MONITOR, SOCKS, AND BLANKET. PT ALSO ATTEMPTED TO PULL OUT G-TUBE. ATTENDED TO PT AND WITH ASSIST FROM CURING PICKLING PACKER, DRESSED UP PT AND APPLIED ABD BAND TO PROTECT G-TUBE. REORIENTED PT AND EDUCATED NOT TO REMOVED TUBING; REINFORCEMENT NEEDED. TELE MONITOR ATTACHED. SAFETY MEASURES IN PLACE. BED IN LOW POSITION AND CALL LIGHT WITHIN REACH. BED ALARM ACTIVATED.
--- NOTE | 2019-07-31 11:22 | NUR ---
PT IS AWAKE AND RESTING ON BED. RESPIRATION EVEN AND UNLABORED ON RA. NO SIGNS OF INJURY AND DISTRESS NOTED. TELE MONITOR ATTACHED. SAFETY MEASURES IN PLACE. BED IN LOW POSITION AND CALL LIGHT WITHIN REACH. BED ALARM ACTIVATED.
--- NOTE | 2019-07-31 11:49 | NUR ---
CALLED [facility] [phone] AND SPOKE WITH JEFFY. JEFFY IS AWARE THAT PT IS MEDICALLY CLEAR BY AND READY TO BE DC. PER JEFFY, SHE WILL BE ABLE TO PICK PT AROUND 1300. ASKED IF PT HAS VACCINATION FOR FLU AND PNA, PER JEFFY, PT IS UP TO DATE WITH BOTH VACCINATIONS. WILL PREPARE DC DOCUMENT.
[2019-07-31 12:00] VITALS: BP 111/67
[2019-07-31] MEDS ORDERED: LEVO750T2 PO (12:03)
--- NOTE | 2019-07-31 12:18 | NUR ---
CALLED DR CRUZ Rivero AT [phone] AND ASKED IF HE WANTS TO DC LYNN. PER DR CRUZ Rivero., REMOVE LYNN PRIOR TO DC. REPEATED AND CONFIRMED ORDER WITH DR ARROYO. WILL PUT IN AN ORDER TO DC LYNN.
--- NOTE | 2019-07-31 13:31 | NUR ---
DISCHARGE INSTRUCTION PROVIDED TO PLASTIC FABRICATOR CARIDAD AT BEDSIDE. EDUCATED PT AND CARIDAD ON MEDICATION REGIMENS, SIDE EFFECTS, DIET, DISEASE MANAGEMENT, SEEK MEDICAL HELP IN CASE OF MEDICAL EMERGENCY AND FOLLOW UP WITH MD AFTER DISCHARGE. ANSWERED ALL CARIDAD'S QUESTIONS AND PROVIDED DISCHARGE PRINT OUT PACKET. CARIDAD AWARE THAT DR ARROYO WILL ARRANGE THE PRESCRIPTION. REMOVED LYNN AND IV, IV CANNULA INTACT AND CLEAN, PT TOLERATED WELL. REMOVED ALL ARM BAND. ACCORDING TO DOCUMENT SPECIALIST JEFFY, PT IS UP TO DATE WITH PNA AND FLU VACCINES. MUSEUM DOCENT ASSISTED TO CHANGED PT INTO HIS OWN CLOTHES AND SIT ON WHEELCHAIR. PT IS GOING TO DC HOME WITH CARIDAD. PT IS IN STABLE CONDITION.
[2019-07-31] MEDS ORDERED: MENT1OIN22 TP (22:27)
[2019-07-31] MEDS ORDERED: POLY17PD65 PO (22:27)
== END 2019-07-31 13:39 | disposition home or self-care (01) | DRG 189 ==
LOC: MED 07:49 → MTU 10:45
PROVIDERS: ADMIT Preventive Medicine Preventive Medicine/Occupational Environmental Medicine; ATTEND Preventive Medicine Preventive Medicine/Occupational Environmental Medicine
DX: J96.00 Acute respiratory failure, unspecified whether with hypoxia or hypercapnia (principal); J45.901 Unspecified asthma with (acute) exacerbation; E87.1 Hypo-osmolality and hyponatremia; J20.9 Acute bronchitis, unspecified; D64.9 Anemia, unspecified; E83.51 Hypocalcemia; E88.09 Other disorders of plasma-protein metabolism, not elsewhere classified; F79 Unspecified intellectual disabilities; K21.9 Gastro-esophageal reflux disease without esophagitis; R73.9 Hyperglycemia, unspecified; N31.9 Neuromuscular dysfunction of bladder, unspecified; R13.10 Dysphagia, unspecified; Z22.322 Carrier or suspected carrier of Methicillin resistant Staphylococcus aureus; Z88.2 Allergy status to sulfonamides; Z93.1 Gastrostomy status; Z88.8 Allergy status to other drugs, medicaments and biological substances; Z79.899 Other long term (current) drug therapy
CPT/HCPCS: 36415; 36600; 71045; 80048; 80053; 81003; 82803; 83605; 83880; 84484; 85025; 85610; 85651; 85730; 86140; 87040; 87081; 87086; 87804; 93005; 94640; 96361; 96365; 99285; J2543; J2920; J7613; J7644; Q0092

== ENCOUNTER 2019-07-31 20:19 | Inpatient (IN) | payer OTHER, MEDICAID ==
[~2019-07-31] VITALS: Ht 162.6 cm; Wt 54.4 kg
[~2019-07-31 20:19] MED LIST changes: +LEVO750T2 PO
--- NOTE | 2019-07-31 20:22 | NUR ---
PT DES BLS. TAKEN TO BED 8
--- NOTE | 2019-07-31 20:22 | NUR ---
Jose melgar in [facility] - 07/31/19 at 3 by MORENA PT TAKEN TO BED 8
[2019-07-31 20:25] VITALS: BP 136/79
[2019-07-31] MEDS ORDERED: NACL 0.9% 500 ML IV ONE (20:25)
--- NOTE | 2019-07-31 20:32 | NUR ---
X-Ray at bedside.
[2019-07-31 21:03] LABS: BASOPHILS % (AUTO) 0.3 % (0.0-2.0); EOSINOPHILS % (AUTO) 0.1 % (0.0-4.0); HEMATOCRIT 32.7 % (36-52); HEMOGLOBIN 10.6 g/dL (12.0-18.0); LYMPHOCYTES # (AUTO) 2.7 K/uL (2.0-11.5); MEAN CORPUSCULAR HEMOGLOBIN 26 pg (27-31); MEAN CORPUSCULAR HGB CONC 32 g/dL (33-37); MEAN CORPUSCULAR VOLUME 79.1 fL (80-94); MONOCYTES # (AUTO) 0.9 K/uL (0.8-1.0); MONOCYTES % (AUTO) 10.2 % (1.7-9.3); NEUTROPHILS # (AUTO) 5.1 K/uL (1.8-7.7); NEUTROPHILS % (AUTO) 58.4 % (42.2-75.2); PLATELET COUNT (AUTO) 152 K/uL (140-450); RED BLOOD CELL COUNT(AUTO) 4.14 MIL/uL (4.20-6.10); RED CELL DISTRIBUTION WIDTH 17.3 % (11.6-13.7); WHITE BLOOD COUNT (AUTO) 8.7 K/uL (4.8-10.8)
--- NOTE | 2019-07-31 21:07 | NUR ---
ATTEMPTED STRAIGHT CATHETERIZATION, NO URINE OUTPUT RETURNED
--- NOTE | 2019-07-31 21:19 | NUR ---
59 Y/O MALE BIB [facility] DUE TO STAFF AT [facility] NOTICING PT BECOMING TACHYPNEIC/SOB S/P DISCHARGE FROM [facility] THIS AFTERNOON. RESP EVEN AND UNLABORED. EXPIRATORY WHEEZING HEARD IN BILAT LOBES. BOWEL SOUNDS NORMO ACTIVE IN ALL QUADRANTS. G TUBE NOTED. ABD NON DISTENDED. SKIN WARM/DRY. ONE MITTEN NOTED ON RIGHT HAND FROM FACILITY DUE TO PATIENT PULLING OUT G TUBE. CAP REFILL <3. GCS 12 (PT AT BASELINE PER [facility]). PERRLA 3MM. NON AMBULATORY. PMH:
[2019-07-31 21:20] LABS: PROTHROMBIN TIME 10.2 secs (10.8-13.4)
[2019-07-31 21:21] LABS: ALBUMIN 2.7 g/dL (3.4-5.0); ANION GAP 8.9 (8-16); CARBON DIOXIDE 31.7 mmol/L (21-32); CREATININE 0.8 mg/dL (0.6-1.3); POTASSIUM 3.6 mmol/L (3.5-5.1); TOTAL BILIRUBIN 0.3 mg/dL (0.0-1.0)
[2019-07-31] MEDS ORDERED: methylPREDNISolone SS 125 MG/2 ML VIAL IVP ONE (21:35)
[2019-07-31] MEDS ORDERED: ALBUTEROL SULFATE/IPRATROPIU 3 ML SOL IH ONE ×2 (21:35→22:05)
[2019-07-31] MEDS ORDERED: MAG SULF 2000 MG/WATER PREMIX 50 ML IV ONE (21:35)
[2019-07-31 22:16] LABS: APPEARANCE,URINE SL CLOUDY (CLEAR); BILIRUBIN,URINE NEGATIVE (NEGATIVE); BLOOD, URINE 2+ (NEGATIVE); LEUKOCYTE ESTERASE ,URINE TRACE (NEGATIVE); NITRITE, URINE NEGATIVE (NEGATIVE); PH,URINE 7.5 (5.0-9.0); UGLUCOSE NEGATIVE (NEGATIVE)
[2019-07-31 22:25] LABS: COLOR,URINE STRAW (YELLOW)
[2019-07-31] MEDS ORDERED: MENT1OIN22 TP (22:27)
[2019-07-31] MEDS ORDERED: POLY17PD65 PO (22:27)
[2019-07-31 22:48] LABS: RBC,URINE 50-80 /HPF (0-5)
[2019-07-31 22:49] LABS: URINE AMORPHOUS URATE 4+ /HPF (None Seen)
[2019-07-31 23:05] VITALS: BP 124/50
--- NOTE | 2019-07-31 23:05 | NUR ---
RECIVED PT FROM ED; PT A, A O X 1, PT MR, INTELLECTUALLY CHALLENGED, PT ABLE TO MOVE FROM SIDE TO SIDE. ON BEDREST. PT IV ON THE LEFT AC G 20,PATENT. CHECKED ON SKIN, MRSA DONE. PT IN CONTACT FOR HX OF C DIFF AND HX MRSA NARES. PLACED ON FALL RISK. WILL CONTINUE TO MONITOR
--- NOTE | 2019-07-31 23:10 | NUR ---
Patient will be admitted to care of DR. ARORYO. Admited to TELE. Will go to room 118. Belongings list completed. Report to PASQUALE ANAYA.
[2019-07-31] MEDS ORDERED: ACETAMINOPHEN 325 MG TAB GT PRN (23:55)
[2019-07-31] MEDS ORDERED: [UNRECOGNIZED DRUG - OTHER] NS PRN (23:55)
[2019-07-31] MEDS ORDERED: [UNRECOGNIZED DRUG - REMARK] GT PRN (23:55)
[2019-07-31] MEDS ORDERED: SODIUM CHLORIDE NS PRN (23:55)
[2019-07-31] MEDS ORDERED: SODIUM PHOSPHATE 118 ML ENEM RC PRN (23:55)
[2019-07-31] MEDS ORDERED: guaiFENesin 20 MG/ML UDC GT PRN (23:55)
[2019-07-31] MEDS ORDERED: FLUTICASONE NASAL 50 MCG/ACTUATION 16 GM BTL NS PRN (23:55)
[2019-08-01] VITALS: BP 125/52
[2019-08-01] MEDS ORDERED: ONDANSETRON 4 MG/2 ML VIAL IVP PRN
[2019-08-01] MEDS ORDERED: ALBUTEROL 0.083% 2.5 MG/3 ML NEBU INH PRN
[2019-08-01] MEDS ORDERED: LORazepam 2 MG/ML VIAL IVP PRN
[2019-08-01] MEDS: DEXT 5% /NACL 0.9% 1,000 ML IV SCH ×4 (01:00→21:22)
[2019-08-01] MEDS: IPRATROPIUM 0.02% 0.5 MG/2.5 ML NEBU INH SCH ×4 (01:00→20:13)
--- NOTE | 2019-08-01 01:01 | NUR ---
PT CHECKED AND ASSESS PT KEEPS ON SITTING UP ON BED, AND TRYING TO TAKE OFF HIS LEFT AC
--- NOTE | 2019-08-01 02:00 | NUR ---
PT KEEPS ON HITTING HIMSELF/ AND MINNA HIS HEAD W/ HIS RIGHT HAND,PATIENT ALSO TRIES TO PULL OUT HIS G TUBE AND HIS IV.INFORMED CHARGE NURSE AND PER CHARGE NURSE TO ORDER FOR Tia HENLEY RESTRAINT ORDER. WILL INFORM IN THE AM. WILL ENDORSE
[2019-08-01 04:00] VITALS: BP 112/58
--- NOTE | 2019-08-01 04:00 | NUR ---
PT RESTRAINTS TAKEN OFF FOR 15 MINS AND CHECKED ON CIRCULATION. TURNED PATIENT, CLEANED, NO BM NOTED FOR NOW
--- NOTE | 2019-08-01 06:00 | NUR ---
AGAIN CHECKED ON PT FOR CIRCULATION, RESTRAINT OFF FOR 15 MINS, PATIENT TURNED TO ONE SIDE, AND CLEANED PATIENT.
--- NOTE | 2019-08-01 07:27 | NUR ---
SHIFT REPORT RECEIVED FROM SUPPLIER SPECIALIST NURSE. PT IS IN BED SLEEPING. NO DISTRESS NOTED. WILL CONTINUE TO MONITOR. CALL LIGHT IN REACH.
[2019-08-01] MEDS ORDERED: SODIUM CHLORIDE 0.65% 45 ML BTL NS PRN (07:35)
[2019-08-01 07:41] LABS: BASOPHILS % (AUTO) 0.1 % (0.0-2.0); LYMPHOCYTES # (AUTO) 1.1 K/uL (2.0-11.5); LYMPHOCYTES % (AUTO) 19.7 % (20.5-51.1); MEAN CORPUSCULAR HEMOGLOBIN 26 pg (27-31); MEAN CORPUSCULAR HGB CONC 33 g/dL (33-37); MEAN CORPUSCULAR VOLUME 79.1 fL (80-94); MONOCYTES # (AUTO) 0.1 K/uL (0.8-1.0); NEUTROPHILS # (AUTO) 4.4 K/uL (1.8-7.7); NEUTROPHILS % (AUTO) 78.2 % (42.2-75.2); PLATELET COUNT (AUTO) 125 K/uL (140-450); RED BLOOD CELL COUNT(AUTO) 3.42 MIL/uL (4.20-6.10); RED CELL DISTRIBUTION WIDTH 17.2 % (11.6-13.7); WHITE BLOOD COUNT (AUTO) 5.6 K/uL (4.8-10.8)
[2019-08-01 08:00] VITALS: BP 114/66
--- NOTE | 2019-08-01 08:50 | NUR ---
PATIENT HAS BEEN SCREENED AND CATEGORIZED HIGH NUTRITION RISK. PATIENT WILL BE SEEN WITHIN 1-2 DAYS OF ADMISSION. 08/01/19-08/02/[address]
[2019-08-01] MEDS ORDERED: FLUTICASONE NASAL 50 MCG/ACTUATION 16 GM BTL NS PRN (09:00)
[2019-08-01] MEDS: FINASTERIDE 5 MG TAB GT SCH (09:04)
[2019-08-01] MEDS: LEVOFLOXACIN 500 MG TAB PO SCH (09:04)
[2019-08-01] MEDS: methylPREDNISolone SS 40 MG/ML VIAL IVP SCH ×2 (09:04→21:05)
[2019-08-01] MEDS: risperiDONE 1 MG TAB GT SCH ×2 (09:04→21:05)
[2019-08-01] MEDS: POLYETHYLENE GLYCOL 17 GM/PKT PO SCH (09:05)
--- NOTE | 2019-08-01 09:30 | NUR ---
PT IS IN BED SLEEPING. NO DISTRESS NOTED. NO COMPLAINS OF PAIN . RESTRAINTS CHECKED. SAFETY MEASURES IN PLACE. WILL CONTINUE TO MONITOR. CALL LIGHT IN REACH.
[2019-08-01 10:07] LABS: ANION GAP 7.7 (8-16); CARBON DIOXIDE 28.8 mmol/L (21-32); CREATININE 0.7 mg/dL (0.6-1.3); POTASSIUM 4.5 mmol/L (3.5-5.1)
[2019-08-01 12:00] VITALS: BP 119/65
--- NOTE | 2019-08-01 13:25 | NUR ---
PT IS IN RESTING IN BED. RESTRAINS REMOVED AND CHECKED. PT REPOSITIONED. NO DISTRESS NOTED. WILL CONTINUE TO MONITOR. CALL LIGHT IN REACH.
--- NOTE | 2019-08-01 13:41 | NUR ---
DC PLANNIN YRS OLD MALE PATIENT WAS ADMITTED FROM [facility] WITH A DX OF ASTHMA EXACERBATION . PT HAS A HX OF ASTHMA , MENTAL RETARDATION, DYSPHAGIA G-TUBE AND ANEMIA. CXR SHOWED IMPROVEMENT IN MILD INTERSTITIAL PULMONARY EDEMA . BLOOD AND URINE CULTURE PENDING , CONSULTED WITH PULMO AND ID . DC PLAN TO GO BACK TO [facility] WHEN STABLE CM TO FOLLOW. Addendum: 08/02/19 at 1554 by Delmi Grijalva CM DC PLANNING: SEEN BY DR HERNANDEZ CONTINUE LEVAQUIN WAITING FOR CULTURE RESULT, CONTINUE WEANING OF O2 AND STEROIDS . DC PLAN PER PT RESPONSE TO TREATMENT. CM TO FOLLOW.
--- NOTE | 2019-08-01 15:00 | NUR ---
PT IS SLEEPING IN BED AT THIS TIME. NO DISTRESS NOTED. WILL CONTINUE TO MONITOR. CALL LIGHT IN REACH.
--- NOTE | 2019-08-01 15:19 | NUR ---
PT. ADMITTED WITH LOW GIOVANNI SCALE AT RISK,CONTINUE TO FOLLOW PRESSURE ULCER PREVENTION INTERVENTIONS. -TURN AND REPOSITION PATIENT Q 2H -ASSESS AND MONITOR SKIN CONDITION DURING POSITION CHANGE -OFFLOAD BILATERAL HEELS BY PLACING PILLOWS UNDER CALVES AT ALL TIMES, UNLESS OTHERWISE CONTRAINDICATED -PRESSURE REDISTRIBUTION BY PLACING PILLOWS AND OFFLOADING SACRALCOCCYX -KEEP SKIN CLEAN AND DRY AT ALL TIMES.
--- NOTE | 2019-08-01 15:31 | NUR ---
08/01/19 INITIAL ASSESSMENT COMPLETED PLEASE REFER TO NUTRITION ASSESSMENT UNDER CARE ACTIVITY FOR ESTIMATED NUTRITIONAL NEEDS. 1. RECOMMEND JEVITY 1.2 @ 55 ML/HR X 24 HR -THIS WILL PROVIDE 1065 ML OF WATER, 1584 KCAL AND 73 GM OF PROTEIN WHICH MEETS 100% OF ESTIMATED NEEDS 2. RECOMMEND FREE WATER FLUSH OF [address] TO FOLLOW-UP 2-3 DAYS, HIGH RISK ROXY LU RD
[2019-08-01 16:00] VITALS: BP 105/57
--- NOTE | 2019-08-01 17:41 | NUR ---
PREFORMER IMPREGNATED FABRICS DISCHARGE PLAN ASSESSMENT [facility] Patient: Kye Lacy : 1960 Age/Sex: 59/M Unit#: [id number] Room/Bed: 118/A User: Nicolette Nguyen CM Date: 08/01/19 17:30 Type: CM: Discharge Planning High Risk DC Screen Yes Re-Admission: Increased Symptoms Name: Marsha Dennis Relationship: Sister Pre-Admission Living Arrangements: Board and Care Prior ADL Total/Dependent Healthcare Decision Maker: Next of Kin Other: Sister Marsha Dennis and [facility] Advance Directive No Physician Orders for Life Sustaining Treatment Form No Tentative Discharge Plan/Destination: Board and Care Will require assistance post discharge: No Transportation Needs: transportation provided by [facility] Referred to Salon Manager: No Tentative Discharge Plan Summary: 59 y/o re-admitted for increased SOB. Pt was DC earlier on 07/31/19. Pt with hx of intellectual disability and asthma exacerbation. Sw met with pt at the bedside. Pt was sleeping on bilateral soft reatrains for safety as pt was pulling lines. Ismael spoke to [facility]'s sql database administrator, Judy, xl regards to readmission. Per Judy RN assessed the pt and pt's BP was 103/84; O2 saturation was at 92% with O2 and shoeing distress. Pt has supplemental O2 at home with a PRN standing order. Pt is not conversed; pt's sister, Marsha Dennis, is the pt's decision maker along with [facility]. Pt's field nurse case manager is Anna Marie Pritcehtt . Pt is non-verbal, non-ambulatory but able to help with transfers and requires total care with ADLs. Pt has a G-tube and receives bolus feedings. Pt has a wheelchair at home and hospital bed. Pt attends [facility]. Ismael spoke to patient's sister, Marsha Dennis, who was informed about the admission. DC plan pending on further needs identified home VS SNF. Signature: Nicolette Nguyen ACSW/CM Date: Aug 01, 2019
--- NOTE | 2019-08-01 19:33 | NUR ---
SHIFT REPORT GIVEN TO COOK SHORT ORDER NURSE. PT IS IN STABLE CONDITION. CALL LIGHT IN REACH.
--- NOTE | 2019-08-01 19:35 | NUR ---
RECEIVED PT IN STABLE CONDITION FROM AM NURSE. PT IS ON TELE MONITOR. BEDBOUND. BLIND ON BOTH EYES. ON O22L/NC. NO WHEEZING NOTED AT THIS TIME. TENDS TO PULL OUT TUBINGS. WITH BILATERAL SOFT WRIST RESTRAINT. BLOOD CIRCULATION PRESENT. SKIN INTACT. HAS IVF INFUSING WELL ON LT AC G#20. GT FEEDING INFUSING ALSO. . ON CONTACT ISOLATION FOR HX; MRSA NARES. BED ON LOW POSITION. SIDE RAILS UP X2/ FREQ ROUNDS NEEDED. CALL LIGHT PLACED WITHIN EASY REACH. WILL CONTINUE TO MONITOR.
[2019-08-01 19:50] VITALS: BP 94/41
[2019-08-01] MEDS ORDERED: CRUSHER, PILL MC ONE (21:01)
--- NOTE | 2019-08-01 21:15 | NUR ---
CHECKED PT FOR URINE . INCONTINENT OF URINE. PT ALL WET WITH URINE . BLADDER NOT DISTENDED. NO BM NOTED. CLEANED AND KEPT DRY. THEN REPOSITIONED FOR COMFORT.
--- NOTE | 2019-08-01 23:00 | NUR ---
MADE ROUNDS. PT IS AWAKE. . NON VERBAL. O2 2L/NC ON. WITH NO S/S OF ANY DISTRESS NOTED.
[2019-08-02] VITALS: BP 130/61
[2019-08-02] MEDS: IPRATROPIUM 0.02% 0.5 MG/2.5 ML NEBU INH SCH ×4 (01:00→20:23)
--- NOTE | 2019-08-02 01:00 | NUR ---
REPOSITIONED FOR COMFORT. NO S/S F ANY DISTRESS NOTED.
--- NOTE | 2019-08-02 03:00 | NUR ---
MADE ROUNDS . PT ASLEEP . NO S/S F ANY DISCOMFORT NOR ANY DISTRESS NOTED.
[2019-08-02 03:38] VITALS: BP 114/54
[2019-08-02] MEDS: DEXT 5% /NACL 0.9% 1,000 ML IV SCH ×2 (05:30→16:00)
--- NOTE | 2019-08-02 06:00 | NUR ---
PT HAS BEEN REPOSITION FOR COMFORT. STILL TRYING TO PULL OUT O2 CANNULA . NEED SHONDA SOFT WRIST RESTRAINT
[2019-08-02 07:02] LABS: BASOPHILS % (AUTO) 0.1 % (0.0-2.0); HEMATOCRIT 29.1 % (36-52); HEMOGLOBIN 9.4 g/dL (12.0-18.0); LYMPHOCYTES # (AUTO) 2.1 K/uL (2.0-11.5); LYMPHOCYTES % (AUTO) 18.5 % (20.5-51.1); MEAN CORPUSCULAR HEMOGLOBIN 26 pg (27-31); MEAN CORPUSCULAR HGB CONC 32 g/dL (33-37); MEAN CORPUSCULAR VOLUME 80.1 fL (80-94); NEUTROPHILS # (AUTO) 8.1 K/uL (1.8-7.7); NEUTROPHILS % (AUTO) 72.4 % (42.2-75.2); PLATELET COUNT (AUTO) 123 K/uL (140-450); RED BLOOD CELL COUNT(AUTO) 3.64 MIL/uL (4.20-6.10); RED CELL DISTRIBUTION WIDTH 17.2 % (11.6-13.7); WHITE BLOOD COUNT (AUTO) 11.2 K/uL (4.8-10.8)
--- NOTE | 2019-08-02 07:04 | NUR ---
RECEIVED REPORT FROM NIGHT NURSE TO CONTINUITY OF CARE, PT IS AAOX0, PT IS BLIND, PT IS AWAKE AND MOVING, PT IS ON RESTRAINS FOR PULLING OF LINES, PT HAS PULLED OF NASAL CANNULA, NIGHT NURSE PUT NASAL CANNULA BACK ON PT ON O2 2L NC, PT HAS LAC 20G, INFUSING D5NS AT 100ML/H, PT HAS G-TUBE, FEEDING IS JEVITY 1.2 INFUSING AT 55ML/H WITH A WATER FLUSH OF 150 Q6H, SKIN IS INTACT, SAFETY MEASURES IN PLACE, UPDATED WHITE BOARD, PT IS IN CONTACT FOR HX OF MRSA, WILL CONTINUE TO MONITOR,
--- NOTE | 2019-08-02 07:05 | NUR ---
ENDORSED PT IN STABLE CONDITION TO AM NURSE FOR CONTINUITY OF CARE.
[2019-08-02 07:17] LABS: ANION GAP 5.9 (8-16); CARBON DIOXIDE 30.6 mmol/L (21-32); CREATININE 0.7 mg/dL (0.6-1.3); POTASSIUM 4.5 mmol/L (3.5-5.1)
[2019-08-02 08:00] VITALS: BP 111/72
[2019-08-02] MEDS: POLYETHYLENE GLYCOL 17 GM/PKT PO SCH (09:10)
[2019-08-02] MEDS: LEVOFLOXACIN 500 MG TAB PO SCH (09:10)
[2019-08-02] MEDS: risperiDONE 1 MG TAB GT SCH ×2 (09:11→21:39)
[2019-08-02] MEDS: FINASTERIDE 5 MG TAB GT SCH (09:11)
[2019-08-02] MEDS: methylPREDNISolone SS 40 MG/ML VIAL IVP SCH ×2 (09:12→21:00)
--- NOTE | 2019-08-02 09:26 | NUR ---
ADMINISTERED ORDERED MEDICATION, PT EDUCATION GIVEN, PT HAD 3ML RESIDUAL IN G-TUBE, PT TOLERATING FEEDING, PT TOLERATED MEDICATION WELL, PT IS STABLE, CALL LIGHT WITHIN REACH, BED ALARM ON.
--- NOTE | 2019-08-02 11:05 | NUR ---
PT IS STABLE IN BED, NO SIGNS OF DISTRESS NOTED, RESPIRATIONS ARE EVEN AND UNLABORED ON 2L NC, CALL LIGHT WITHIN REACH, SAFETY MEASURES IN PLACE.
--- NOTE | 2019-08-02 11:47 | NUR ---
PT ON RA WITH SPO2 90%, NO SIGNS OF RESP DISTRESS OR SOB NOTED AT THIS TIME, RN AWARE. WILL CONTINUE TO MONITOR
[2019-08-02 12:00] VITALS: BP 117/71
--- NOTE | 2019-08-02 13:05 | NUR ---
PT STABLE IN BED, NO SIGNS OF DISTRESS, RESPIRATIONS ARE EVEN AND UNLABORED ON ROOM AIR, SAFETY MEASURES IN PLACE
--- NOTE | 2019-08-02 15:00 | NUR ---
PT IS BED RESTING, PT IS STABLE, NO SIGNS OF DISTRESS NOTED, CALL LIGHT WITHIN REACH.
[2019-08-02 16:00] VITALS: BP 128/72
--- NOTE | 2019-08-02 17:00 | NUR ---
PT RESTING IN BED, NO SIGNS OF DISTRESS NOTED, CALL LIGHT WITHIN REACH, SAFETY MEASURES IN PLACE.
--- NOTE | 2019-08-02 19:30 | NUR ---
RECEIVED BEDSIDE REPORT FROM AM SHIFT RN AB, FOR PT'S CONTINUITY OF CARE. PT IS LYING DOWN, IS APHASIC, GRINDING HIS TEETH, PER RN THAT'S NORMAL FOR HIM, PT IS ON HYDRO STATION OPERATOR, ON 2L O2 VIA NC, PT PULLED OUT IV, HAS GTUBE IN PLACE, PT IS ON SOFT WRIST RESTRAINTS, PT SHOWS NO SIGNS OF DISTRESS. SAFETY MEASURES IN PLACE, AND CALL LIGHT IS WITHIN REACH. WILL MONITOR PT THROUGHOUT SHIFT.
--- NOTE | 2019-08-02 19:30 | NUR ---
GAVE REPORT TO NIGHT NURSE FOR CONTINUITY OF CARE, PT IS STABLE
[2019-08-02 20:00] VITALS: BP 152/71
--- NOTE | 2019-08-02 21:11 | NUR ---
GTUBE PLACEMENT VERIFIED THROUGH AUSCULTATION AND ASPIRATION. NO RESIDUAL NOTED. GTUBE FEEDING GOING. ADMINISTERED SCHEDULED MEDICATION ORDERED. PT TOLERATED IT WELL. PT DOES NOT HAVE IV SITE, WILL INSERT NEW IV. PT MADE COMFORTABLE, NO SIGNS OF DISTRESS. WILL CONTINUE TO MONITOR PT.
--- NOTE | 2019-08-02 22:20 | NUR ---
ATTEMPTED TO START NEW IV, NO AVAIL. WILL ASK ED RN IF AVAILABLE, TO START NEW IV. SOLU-MEDROL NOT GIVEN YET DT NO IV SITE. GEOMETRY TUTOR HELPED AND AWARE OF THE SITUATION. PT LYING DOWN COMFORTABLY, WITH NO SIGNS OF DISTRESS.
--- NOTE | 2019-08-02 23:30 | NUR ---
NO IV ACCESS. NET SOFTWARE ENGINEER TRIED AND NO SUCCESS. NO AVAILABLE ED RN AT THIS TIME. WILL RE-TRY TO CONTACT ED RN. MIKE BOCANEGRA MD HAS NOT RETURNED CALL YET.
[2019-08-03] VITALS: BP 149/66
--- NOTE | 2019-08-03 | NUR ---
VS CHECKED AND CHARTED. PT TOOK OFF GOWN, BLANKET, AND PILLOW. SOFT WRIST RESTRAINT STILL IN PLACE. NO SIGNS OF INJURY. AWAITING FOR ANOTHER RN TO START IV. PT SHOWS NO SIGNS OF DISTRESS. WILL CONTINUE TO MONITOR PT.
[2019-08-03] MEDS: IPRATROPIUM 0.02% 0.5 MG/2.5 ML NEBU INH SCH ×3 (01:00→13:00)
--- NOTE | 2019-08-03 01:30 | NUR ---
SENIOR ENGINEERING TEAM LEADER SHILPA INSERTED NEW IV, PATENT AND INTACT. ATTACHED IVF TO INFUSE, NOTICED IV SITE INFILTRATED. WILL NOTIFY MD THAT MULTIPLE ATTEMPTS WERE MADE TO NO AVAIL. COIL BINDER AWARE.
[2019-08-03] MEDS: DEXT 5% /NACL 0.9% 1,000 ML IV SCH ×2 (02:00→12:00)
--- NOTE | 2019-08-03 02:50 | NUR ---
MADE ROUNDS. FOUND PT WITH GOWN OFF, REPOSITIONED PT AND MADE COMFORTABLE. RE-ASSESSED SOFT WRIST RESTRAINTS, NO INJURY ON SITE, PT STILL TRIES TO TAKE OFF ELECTRONICS ENGINEERING TECHNOLOGIST LEADS.
--- NOTE | 2019-08-03 03:00 | NUR ---
SPOKE WITH MD AND NOTIFIED RE: IV INSERTION. MD ORDERED PICC LINE INSERTION. WILL CARRY OUT ORDER.
[2019-08-03 04:00] VITALS: BP 139/71
--- NOTE | 2019-08-03 04:00 | NUR ---
VS CHECKED AND CHARTED. PT RE-ASSESSED FOR SOFT WRIST RESTRAINT. PT WAS PULLING OUT GTUBE FEEDING TUBE AND OR SCRUB TECH LEADS. REPOSITIONED PT AND REORIENTED TO THE SURROUNDINGS. PT FOLLOWS SIMPLE COMMANDS. WILL CONTINUE TO MONITOR PT.
--- NOTE | 2019-08-03 05:05 | NUR ---
CALLED AND LEFT VM FOR PICC LINE RN. SPINNING AND WINDING SUPERVISOR AWARE.
--- NOTE | 2019-08-03 06:13 | NUR ---
SPOKE WITH PT'S SISTER, KENYON LOAIZA FOR PICC LINE CONSENT. EXPLAINED TO SISTER WHAT IS PICC LINE, PROCEDURE, AND BENEFITS. PT'S SISTER GIVES CONSENT FOR PICC LINE INSERTION. PT LYING DOWN COMFORTABLY, NO SIGNS OF DISTRESS. WILL ENDORSE TO AM SHIFT RN FOR PT'S CONTINUITY OF CARE.
[2019-08-03 06:32] LABS: BASOPHILS % (AUTO) 0.1 % (0.0-2.0); EOSINOPHILS % (AUTO) 0.3 % (0.0-4.0); HEMATOCRIT 30.8 % (36-52); HEMOGLOBIN 9.6 g/dL (12.0-18.0); LYMPHOCYTES # (AUTO) 4.5 K/uL (2.0-11.5); LYMPHOCYTES % (AUTO) 28.4 % (20.5-51.1); MEAN CORPUSCULAR HEMOGLOBIN 26 pg (27-31); MEAN CORPUSCULAR HGB CONC 31 g/dL (33-37); MEAN CORPUSCULAR VOLUME 81.6 fL (80-94); MONOCYTES # (AUTO) 1.1 K/uL (0.8-1.0); MONOCYTES % (AUTO) 6.8 % (1.7-9.3); NEUTROPHILS # (AUTO) 10.2 K/uL (1.8-7.7); NEUTROPHILS % (AUTO) 64.4 % (42.2-75.2); PLATELET COUNT (AUTO) 129 K/uL (140-450); RED BLOOD CELL COUNT(AUTO) 3.78 MIL/uL (4.20-6.10); RED CELL DISTRIBUTION WIDTH 17.5 % (11.6-13.7); WHITE BLOOD COUNT (AUTO) 15.9 K/uL (4.8-10.8)
[2019-08-03 07:10] LABS: ANION GAP 11.1 (8-16); CARBON DIOXIDE 28.2 mmol/L (21-32); CREATININE 0.7 mg/dL (0.6-1.3); POTASSIUM 3.3 mmol/L (3.5-5.1)
--- NOTE | 2019-08-03 07:20 | NUR ---
RECEIVED REPORT FROM SCORER SINGLE NURSE FOR CONTINUITY OF CARE . PATIENT LYING IN BED, SUPINE, RESTING. A&Ox1. APHASIC, AROUSABLE TO VOICE. BREATHING TO RA; RESPIRATIONS ARE EVEN AND UNLABORED. G-TUBE IN PLACE, INFUSING PER MD ORDERS. NO IV ACCESS AT THIS TIME, WAITING FOR PICC LINE NURSE TO CALL BACK. SKIN CLEAN AND DRY. PT IS INCONTINENT AND BEDBOUND. PATIENT IS BLIND IN BOTH EYES. TELE MONITOR ATTACHED. SAFETY MEASURES IN PLACE, HOB ELEVATED 30 DEGREE, BED IN LOW POSITION. NO DISTRESS NOTED, WILL CONTINUE TO MONITOR.
[2019-08-03 08:00] VITALS: BP 123/63
--- NOTE | 2019-08-03 08:35 | NUR ---
CALLED PICC LINE NURSE AT [phone] AND SPOKE WITH LESLYE. PER LESLYE, THE PICC LINE RN FOR [facility] IS [place] FOR TODAY AND SHE WILL PAGE HIM.
--- NOTE | 2019-08-03 08:46 | NUR ---
RECEIVED A CALL FROM PICC LINE PASQUALE BLACK THAT HE SAID HE WILL BE IN THE HOSPITAL IN A COUPLE HOURS AROUND 11ISH AND HE ALSO REQUESTED TO ORDER THE ULTRASOUND GUIDED NOW AND HE WILL COORDINATE WITH THE RADIOLOGY DEPT. WILL ORDER.
--- NOTE | 2019-08-03 09:40 | NUR ---
FOUND PT REMOVED ALL HIS GOWN AND KICKED BLANKET ON FLOOR. ASSISTED TO PUT ON GOWN AND BLANKET, EDUCATED PT NOT TO REMOVED GOWN AND BLANKET FOR PRIVACY; REINFORCEMENT NEEDED. TELE MONITOR ATTACHED. SAFETY MEASURES IN PLACE.
[2019-08-03] MEDS: risperiDONE 1 MG TAB GT SCH (10:11)
[2019-08-03] MEDS: methylPREDNISolone SS 40 MG/ML VIAL IVP SCH (10:11)
[2019-08-03] MEDS: FINASTERIDE 5 MG TAB GT SCH (10:11)
[2019-08-03] MEDS: LEVOFLOXACIN 500 MG TAB PO SCH (10:12)
[2019-08-03] MEDS: POLYETHYLENE GLYCOL 17 GM/PKT PO SCH (10:12)
--- NOTE | 2019-08-03 10:12 | NUR ---
CHECKED G-TUBE RESIDUAL PRIOR TO MEDS ADMINISTER, RESIDUAL LESS THAN 3 ML. PATIENT'S SCHEDULED MEDS GIVEN VIA G-TUBE, FLUSHED BEFORE AND AFTER MEDS ADMINISTERED, MEDS EDUCATION PROVIDED AND REINFORCEMENT NEEDED. PT IS AWAKE AND RESTING ON BED. RESTRAINTS ON BILATERALLY, NO SIGNS OF INJURY. FLACC 0. TELE MONITOR ATTACHED. SAFETY MEASURES IN PLACE. BED IN LOW POSITION AND CALL LIGHT WITHIN REACH.
--- NOTE | 2019-08-03 11:37 | NUR ---
PT HAS ONE SMALL BM. WITH ASSIST FROM TWO SUPERINTENDENT MAINTENANCE AIRPORTS, CLEAN AND CHANGED PT, PT TOLERATED WELL. RESPIRATION EVEN AND UNLABORED ON RA. FLACC 0. ASSESSED RESTRAINTS, NO INJURY AND CAPILLARY REFILLED < 3 SECONDS. NO SIGNS OF DISTRESS NOTED. TELE MONITOR ATTACHED. SAFETY MEASURES IN PLACE. BED IN LOW POSITION AND CALL LIGHT WITHIN REACH. BED ALARM ACTIVATED.
[2019-08-03 12:00] VITALS: BP 127/67
--- NOTE | 2019-08-03 13:03 | NUR ---
CALLED AND SPOKE WITH DR CRUZ Rivero [phone] REGARDS PICC LINE CONSENT. PER DR CRUZ Rivero, HE WILL ARRIVE THE HOSPITAL IN HALF AN HOUR.
--- NOTE | 2019-08-03 13:45 | NUR ---
PT AWAKE AND MOVING AROUND ON BED. FLACC 0. NO SIGN SOF DISTRESS NOTED. SAFETY MEASURES IN PLACE. BED IN LOW POSITION AND CALL LIGHT WITHIN REACH. BED ALARM ACTIVATED.
[2019-08-03] MEDS ORDERED: ALBU0.0912 INH (13:50)
[2019-08-03] MEDS ORDERED: ATRMDI IH (13:50)
[2019-08-03] MEDS ORDERED: BUDE1AER IH (13:50)
--- NOTE | 2019-08-03 14:27 | NUR ---
CALLED PT'S SISTER KENYON [phone], INFORMATION OBTAINED FROM FACE SHEET, CALLED 2X AND NO ANSWER. LEFT A BRIEF MESSAGE FOR RETURN CALL.
--- NOTE | 2019-08-03 15:00 | NUR ---
PATIENT DISCONNECTED LEAD. CONNECTED LEAD, AND PT. REATTACHED TO THE PATHOLOGY LAB TECHNICIAN. PT IS SITTING UP IN BED SAFETY MEASURES IN PLACE, BED IN LOW POSITION, CALL LIGHT IS WITHIN REACH. NO DISTRESS NOTED. WILL CONTINUE TO MONITOR.
--- NOTE | 2019-08-03 15:24 | NUR ---
08/03/19 RD FOLLOW UP COMPLETED PLEASE REFER TO NUTRITION ASSESSMENT UNDER CARE ACTIVITY FOR ESTIMATED NUTRITIONAL NEEDS. 1. CONTINUE JEVITY 1.2 @ 55 ML/HR X 24 HR -THIS WILL PROVIDE 1065 ML OF WATER, 1584 KCAL AND 73 GM OF PROTEIN WHICH MEETS 100% OF ESTIMATED NEEDS 2. CONTINUE FREE WATER FLUSH OF [address] TO FOLLOW-UP 2-3 DAYS, HIGH RISK ROXY LU RD
--- NOTE | 2019-08-03 15:55 | NUR ---
CALLED [facility] AND SPOKE WITH ЕКАТЕРИНА AT [phone]. PROVIDED ЕКАТЕРИНА WITH FULL REPORT. ЕКАТЕРИНА WAS AWARE THAT THE PT WAS MEDICALLY CLEARED BY DR ARROYO AND WILL FOLLOW-UP WITH DR. ARROYO AFTER DISCHARGE. JASKARAN REQUESTED THAT PRESCRIPTIONS BE FAXED INTO THE PHARMACY AT [phone]. PER ЕКАТЕРИНА THEY WILL CALL WITH THE TIME OF TRANSPORT ARRIVAL, AND WILL BRING PATIENT'S CLOTHING.
[2019-08-03 16:00] VITALS: BP 113/68
--- NOTE | 2019-08-03 17:08 | NUR ---
FAX TO PHARMACY WENT THROUGH SUCCESSFULLY. CALLED [facility] [phone] 2X TO FOLLOW UP WITH DC, NO ANSWER AND VOICE MAIL BOX IS FULL UNABLE TO LEFT MESSAGE.
--- NOTE | 2019-08-03 17:50 | NUR ---
DISCHARGE INSTRUCTION PROVIDED TO PT AND VIDEO RECORDER MECHANIC KAVIN. EDUCATED BOTH ON FOLLOW UP WITH MD, SEEK MEDICAL HELP IN CASE OF EMERGENCY, MEDICATION REGIMEN, SIDE EFFECTS, G-TUBE FEEDING. ANSWERED ALL KAVIN'S QUESTIONS. PROVIDED A COPY OF LAB, IMAGING PER REQUEST. PROVIDED HARD COPY OF DISCHARGE PACKET AND PRESCRIPTIONS. REMOVED ALL BANDS. ELECTRICAL MECHANICAL TECHNICIAN ASSISTED VIDEO RECORDER MECHANIC TO CHANGED PT INTO HIS OWN CLOTHES. KAVIN TOOK ALL PT'S BELONGINGS HOME. PT IS UP TO DATE WITH VACCINATION. PT IS GOING TO DISCHARGE TO [facility] WITH VIDEO RECORDER MECHANIC KAVIN. PT IS IN STABLE CONDITION.
== END 2019-08-03 17:50 | DRG 189 ==
LOC: MED 20:19 → MTU 22:29 → MED 23:01
PROVIDERS: ADMIT Preventive Medicine Preventive Medicine/Occupational Environmental Medicine; ATTEND Preventive Medicine Preventive Medicine/Occupational Environmental Medicine
DX: J96.00 Acute respiratory failure, unspecified whether with hypoxia or hypercapnia (principal); J45.901 Unspecified asthma with (acute) exacerbation; D69.6 Thrombocytopenia, unspecified; D64.9 Anemia, unspecified; D72.829 Elevated white blood cell count, unspecified; E83.51 Hypocalcemia; E87.6 Hypokalemia; E88.09 Other disorders of plasma-protein metabolism, not elsewhere classified; F79 Unspecified intellectual disabilities; K21.9 Gastro-esophageal reflux disease without esophagitis; T38.0X5A Adverse effect of glucocorticoids and synthetic analogues, initial encounter; R13.10 Dysphagia, unspecified; Z93.1 Gastrostomy status; Z88.2 Allergy status to sulfonamides; Y92.89 Other specified places as the place of occurrence of the external cause; Z88.1 Allergy status to other antibiotic agents
CPT/HCPCS: 36415; 36600; 71045; 80048; 80053; 81001; 82803; 83605; 83874; 83880; 84484; 85025; 85610; 85651; 85730; 86140; 87040; 87081; 87086; 93005; 94640; 96365; 96375; 99285; C1751; J2920; J2930; J3475; J7042; J7644; Q0092

== ENCOUNTER 2019-08-30 18:21 | Inpatient (IN) | payer OTHER, MEDICAID ==
[~2019-08-30] VITALS: Ht 165.1 cm; Wt 56.2 kg
[~2019-08-30 18:21] MED LIST changes: +ALBU0.0912 INH; +ATRMDI IH; -AZEL137S8 NS; +BUDE1AER IH; -LEVO750T2 PO; -MIRABULK GT; +POLY17PD65 GT
[2019-08-30 18:24] VITALS: BP 142/78
[2019-08-30] MEDS ORDERED: [UNRECOGNIZED DRUG - CODE] GT (18:47)
[2019-08-30 19:44] LABS: BASOPHILS % (AUTO) 0.3 % (0.0-2.0); EOSINOPHILS # (AUTO) 0.2 K/uL (0-0.4); MONOCYTES # (AUTO) 1.1 K/uL (0.8-1.0); NEUTROPHILS # (AUTO) 5.7 K/uL (1.8-7.7)
[2019-08-30 19:48] LABS: EOSINOPHILS % (AUTO) 2.2 % (0.0-4.0); HEMATOCRIT 25.4 % (36-52); HEMOGLOBIN 7.9 g/dL (12.0-18.0); LYMPHOCYTES # (AUTO) 2.5 K/uL (2.0-11.5); LYMPHOCYTES % (AUTO) 25.7 % (20.5-51.1); MEAN CORPUSCULAR HEMOGLOBIN 24 pg (27-31); MEAN CORPUSCULAR HGB CONC 31 g/dL (33-37); MEAN CORPUSCULAR VOLUME 77.7 fL (80-94); NEUTROPHILS % (AUTO) 59.8 % (42.2-75.2); RED BLOOD CELL COUNT(AUTO) 3.26 MIL/uL (4.20-6.10); RED CELL DISTRIBUTION WIDTH 17.8 % (11.6-13.7); WHITE BLOOD COUNT (AUTO) 9.5 K/uL (4.8-10.8)
[2019-08-30 19:54] LABS: ALBUMIN 2.5 g/dL (3.4-5.0); ANION GAP 7.9 (8-16); CARBON DIOXIDE 31.6 mmol/L (21-32); CREATININE 0.7 mg/dL (0.6-1.3); POTASSIUM 3.5 mmol/L (3.5-5.1); TOTAL BILIRUBIN 0.4 mg/dL (0.0-1.0)
[2019-08-30 20:00] LABS: PROTHROMBIN TIME 9.7 secs (10.8-13.4)
[2019-08-30 20:18] LABS: PLATELET COUNT (AUTO) 12 K/uL (140-450)
[2019-08-30] MEDS: DEXT 5% / NACL 0.45% 1,000 ML IV SCH (23:18)
[2019-08-30] MEDS ORDERED: [UNRECOGNIZED DRUG - REMARK] GT PRN (23:20)
[2019-08-30] MEDS ORDERED: guaiFENesin 20 MG/ML UDC GT PRN (23:20)
[2019-08-30] MEDS ORDERED: SODIUM PHOSPHATE 118 ML ENEM RC PRN (23:20)
[2019-08-30] MEDS ORDERED: LORazepam 2 MG/ML VIAL IVP PRN (23:25)
[2019-08-30] MEDS ORDERED: ONDANSETRON 4 MG/2 ML VIAL IVP PRN (23:25)
[2019-08-30] MEDS ORDERED: ACETAMINOPHEN 650 MG/20.3 ML UDC GT PRN (23:50)
[2019-08-31 02:03] VITALS: BP 101/50
[2019-08-31] MEDS ORDERED: FLUTICASONE NASAL 50 MCG/ACTUATION 16 GM BTL NS PRN (06:40)
[2019-08-31 08:00] VITALS: BP 105/61
[2019-08-31] MEDS: DEXT 5% / NACL 0.45% 1,000 ML IV SCH ×2 (08:30→18:43)
[2019-08-31] MEDS ORDERED: MENTHOL/ZINC OXIDE 113 GM TUBE TP SCH (09:00)
[2019-08-31] MEDS: FINASTERIDE 5 MG TAB GT SCH (09:49)
[2019-08-31] MEDS: POLYETHYLENE GLYCOL 17 GM/PKT GT SCH ×2 (09:49→21:45)
[2019-08-31] MEDS: risperiDONE 1 MG TAB GT SCH ×2 (09:49→22:02)
[2019-08-31] MEDS: BRIMONIDINE TARTRATE 0.2% OP 5 ML BTL OP SCH ×2 (09:52→21:51)
[2019-08-31] MEDS ORDERED: SODIUM PHOSPHATE 118 ML ENEM RC PRN (11:01)
[2019-08-31 14:15] LABS: BASOPHILS # (AUTO) 0.1 K/uL (0.00-0.22); BASOPHILS % (AUTO) 0.4 % (0.0-2.0); EOSINOPHILS # (AUTO) 0.2 K/uL (0-0.4); EOSINOPHILS % (AUTO) 1.7 % (0.0-4.0); HEMATOCRIT 26.5 % (36-52); HEMOGLOBIN 7.9 g/dL (12.0-18.0); LYMPHOCYTES % (AUTO) 14.4 % (20.5-51.1); MEAN CORPUSCULAR HEMOGLOBIN 23 pg (27-31); MEAN CORPUSCULAR HGB CONC 30 g/dL (33-37); MEAN CORPUSCULAR VOLUME 77.9 fL (80-94); MONOCYTES # (AUTO) 0.8 K/uL (0.8-1.0); MONOCYTES % (AUTO) 5.5 % (1.7-9.3); NEUTROPHILS # (AUTO) 10.9 K/uL (1.8-7.7); PLATELET COUNT (AUTO) 32 K/uL (140-450); RED CELL DISTRIBUTION WIDTH 17.7 % (11.6-13.7); WHITE BLOOD COUNT (AUTO) 13.9 K/uL (4.8-10.8)
[2019-08-31 14:32] LABS: ALBUMIN 2.6 g/dL (3.4-5.0); ANION GAP 9.6 (8-16); CARBON DIOXIDE 29.4 mmol/L (21-32); CREATININE 0.7 mg/dL (0.6-1.3); TOTAL BILIRUBIN 0.4 mg/dL (0.0-1.0)
[2019-08-31 16:00] VITALS: BP 112/66
[2019-08-31 20:23] LABS: D-DIMER 192 ng/ml (0-400)
[2019-08-31 20:57] LABS: FIBRINOGEN 359 mg/dL (200-400)
[2019-08-31] MEDS ORDERED: CRUSHER, PILL MC ONE (21:53)
[2019-09-01] VITALS: BP 104/60
[2019-09-01] MEDS: DEXT 5% / NACL 0.45% 1,000 ML IV SCH ×3 (06:37→16:16)
[2019-09-01 08:00] VITALS: BP 134/71
[2019-09-01 09:12] LABS: HEPATITIS A ANTIBODY IGM Negative (Negative); HEPATITIS B CORE AB TOTAL Negative (Negative); HEPATITIS B SURFACE ANTIBODY Reactive (.); HEPATITIS B SURFACE ANTIGEN Negative (Negative)
[2019-09-01 09:25] LABS: HEMATOCRIT 27.1 % (36-52); HEMOGLOBIN 8.2 g/dL (12.0-18.0); MEAN CORPUSCULAR HEMOGLOBIN 24 pg (27-31); MEAN CORPUSCULAR HGB CONC 30 g/dL (33-37); MEAN CORPUSCULAR VOLUME 78.2 fL (80-94); PLATELET COUNT (AUTO) 30 K/uL (140-450); RED BLOOD CELL COUNT(AUTO) 3.46 MIL/uL (4.20-6.10); RED CELL DISTRIBUTION WIDTH 17.9 % (11.6-13.7); WHITE BLOOD COUNT (AUTO) 9.8 K/uL (4.8-10.8)
[2019-09-01 09:26] LABS: BASOPHILS % (AUTO) 0.4 % (0.0-2.0); EOSINOPHILS # (AUTO) 0.3 K/uL (0-0.4); LYMPHOCYTES # (AUTO) 1.8 K/uL (2.0-11.5); LYMPHOCYTES % (AUTO) 18.2 % (20.5-51.1); MONOCYTES # (AUTO) 0.9 K/uL (0.8-1.0); MONOCYTES % (AUTO) 9.3 % (1.7-9.3); NEUTROPHILS # (AUTO) 6.8 K/uL (1.8-7.7); NEUTROPHILS % (AUTO) 69.1 % (42.2-75.2)
[2019-09-01] MEDS: FINASTERIDE 5 MG TAB GT SCH (09:46)
[2019-09-01] MEDS: POLYETHYLENE GLYCOL 17 GM/PKT GT SCH ×2 (09:46→20:25)
[2019-09-01] MEDS: BRIMONIDINE TARTRATE 0.2% OP 5 ML BTL OP SCH ×2 (09:47→20:25)
[2019-09-01] MEDS: risperiDONE 1 MG TAB GT SCH ×2 (09:47→20:26)
[2019-09-01 09:54] LABS: ANION GAP 11.3 (8-16); CARBON DIOXIDE 28.8 mmol/L (21-32); CREATININE 0.8 mg/dL (0.6-1.3); POTASSIUM 4.1 mmol/L (3.5-5.1)
[2019-09-01 10:35] LABS: FERRITIN 16 ng/mL (30 - 400)
[2019-09-01] MEDS: CHLORHEXADINE GLUC 2% CLOTH TP SCH (11:02)
[2019-09-01] MEDS: MUPIROCIN CA NASAL 2% 1GM TUBE NS SCH (11:02)
[2019-09-01 16:00] VITALS: BP 132/74
[2019-09-02] VITALS: BP 125/71
[2019-09-02] MEDS: DEXT 5% / NACL 0.45% 1,000 ML IV SCH ×2 (03:01→15:47)
[2019-09-02 07:19] LABS: BASOPHILS % (AUTO) 0.3 % (0.0-2.0); EOSINOPHILS # (AUTO) 0.2 K/uL (0-0.4); EOSINOPHILS % (AUTO) 1.8 % (0.0-4.0); HEMOGLOBIN 8.5 g/dL (12.0-18.0); LYMPHOCYTES # (AUTO) 2.1 K/uL (2.0-11.5); MEAN CORPUSCULAR HEMOGLOBIN 23 pg (27-31); MEAN CORPUSCULAR HGB CONC 30 g/dL (33-37); MEAN CORPUSCULAR VOLUME 77.4 fL (80-94); MONOCYTES # (AUTO) 1.1 K/uL (0.8-1.0); MONOCYTES % (AUTO) 9.7 % (1.7-9.3); NEUTROPHILS # (AUTO) 7.7 K/uL (1.8-7.7); NEUTROPHILS % (AUTO) 69.2 % (42.2-75.2); RED BLOOD CELL COUNT(AUTO) 3.62 MIL/uL (4.20-6.10); RED CELL DISTRIBUTION WIDTH 18.2 % (11.6-13.7); WHITE BLOOD COUNT (AUTO) 11.1 K/uL (4.8-10.8)
[2019-09-02 07:42] LABS: ANION GAP 12.4 (8-16); CARBON DIOXIDE 28.3 mmol/L (21-32); CREATININE 0.7 mg/dL (0.6-1.3); POTASSIUM 3.7 mmol/L (3.5-5.1)
[2019-09-02 07:49] LABS: PLATELET COUNT (AUTO) 17 K/uL (140-450)
[2019-09-02 08:00] VITALS: BP 111/57
[2019-09-02] MEDS: FINASTERIDE 5 MG TAB GT SCH (09:32)
[2019-09-02] MEDS: MUPIROCIN CA NASAL 2% 1GM TUBE NS SCH (09:32)
[2019-09-02] MEDS: risperiDONE 1 MG TAB GT SCH ×2 (09:32→21:00)
[2019-09-02] MEDS: POLYETHYLENE GLYCOL 17 GM/PKT GT SCH ×2 (09:33→21:00)
[2019-09-02] MEDS: BRIMONIDINE TARTRATE 0.2% OP 5 ML BTL OP SCH ×2 (09:33→20:59)
[2019-09-02] MEDS: CHLORHEXADINE GLUC 2% CLOTH TP SCH (09:34)
[2019-09-02 12:13] LABS: LACTATE DEHYDROGENASE 291 IU/L (121-224)
[2019-09-02 14:47] LABS: BASOPHILS % (AUTO) 0.4 % (0.0-2.0); EOSINOPHILS # (AUTO) 0.2 K/uL (0-0.4); EOSINOPHILS % (AUTO) 2.5 % (0.0-4.0); HEMATOCRIT 24.1 % (36-52); HEMOGLOBIN 7.4 g/dL (12.0-18.0); LYMPHOCYTES # (AUTO) 1.7 K/uL (2.0-11.5); LYMPHOCYTES % (AUTO) 19.6 % (20.5-51.1); MEAN CORPUSCULAR HEMOGLOBIN 24 pg (27-31); MEAN CORPUSCULAR HGB CONC 31 g/dL (33-37); MEAN CORPUSCULAR VOLUME 76.5 fL (80-94); MONOCYTES # (AUTO) 0.9 K/uL (0.8-1.0); MONOCYTES % (AUTO) 10.3 % (1.7-9.3); NEUTROPHILS # (AUTO) 5.9 K/uL (1.8-7.7); NEUTROPHILS % (AUTO) 67.2 % (42.2-75.2); PLATELET COUNT (AUTO) 33 K/uL (140-450); RED BLOOD CELL COUNT(AUTO) 3.14 MIL/uL (4.20-6.10); RED CELL DISTRIBUTION WIDTH 17.7 % (11.6-13.7); WHITE BLOOD COUNT (AUTO) 8.7 K/uL (4.8-10.8)
[2019-09-02 16:00] VITALS: BP 107/67
[2019-09-03] VITALS: BP 136/70
[2019-09-03] MEDS: DEXT 5% / NACL 0.45% 1,000 ML IV SCH ×2 (01:04→15:22)
[2019-09-03 06:47] LABS: ALBUMIN 2.5 g/dL (3.4-5.0); ANION GAP 8.2 (8-16); CARBON DIOXIDE 29.8 mmol/L (21-32); CREATININE 0.6 mg/dL (0.6-1.3); TOTAL BILIRUBIN 0.4 mg/dL (0.0-1.0)
[2019-09-03 06:56] LABS: BASOPHILS % (AUTO) 0.4 % (0.0-2.0); EOSINOPHILS # (AUTO) 0.3 K/uL (0-0.4); EOSINOPHILS % (AUTO) 2.6 % (0.0-4.0); HEMATOCRIT 25.7 % (36-52); HEMOGLOBIN 7.7 g/dL (12.0-18.0); LYMPHOCYTES # (AUTO) 1.7 K/uL (2.0-11.5); LYMPHOCYTES % (AUTO) 16.5 % (20.5-51.1); MEAN CORPUSCULAR HEMOGLOBIN 23 pg (27-31); MEAN CORPUSCULAR HGB CONC 30 g/dL (33-37); MEAN CORPUSCULAR VOLUME 77.4 fL (80-94); MONOCYTES % (AUTO) 9.8 % (1.7-9.3); NEUTROPHILS # (AUTO) 7.4 K/uL (1.8-7.7); NEUTROPHILS % (AUTO) 70.7 % (42.2-75.2); RED BLOOD CELL COUNT(AUTO) 3.32 MIL/uL (4.20-6.10); RED CELL DISTRIBUTION WIDTH 17.2 % (11.6-13.7)
[2019-09-03 07:48] LABS: PLATELET COUNT (AUTO) 30 K/uL (140-450); WHITE BLOOD COUNT (AUTO) 10.4 K/uL (4.8-10.8)
[2019-09-03 08:00] VITALS: BP 125/68
[2019-09-03] MEDS: FINASTERIDE 5 MG TAB GT SCH (09:14)
[2019-09-03] MEDS: risperiDONE 1 MG TAB GT SCH ×2 (09:14→20:27)
[2019-09-03] MEDS: MUPIROCIN CA NASAL 2% 1GM TUBE NS SCH (09:15)
[2019-09-03] MEDS: BRIMONIDINE TARTRATE 0.2% OP 5 ML BTL OP SCH ×2 (09:15→20:27)
[2019-09-03] MEDS: POLYETHYLENE GLYCOL 17 GM/PKT GT SCH ×2 (09:15→20:26)
[2019-09-03] MEDS: CHLORHEXADINE GLUC 2% CLOTH TP SCH (09:17)
[2019-09-03 16:00] VITALS: BP 114/59
[2019-09-03 20:00] VITALS: BP 126/71
[2019-09-04] VITALS: BP 121/55
[2019-09-04] MEDS: DEXT 5% / NACL 0.45% 1,000 ML IV SCH ×3 (02:30→20:39)
[2019-09-04 07:19] LABS: ANION GAP 12.3 (8-16); CARBON DIOXIDE 28.2 mmol/L (21-32); CREATININE 0.7 mg/dL (0.6-1.3); POTASSIUM 3.5 mmol/L (3.5-5.1)
[2019-09-04 07:23] LABS: BASOPHILS # (AUTO) 0.1 K/uL (0.00-0.22); BASOPHILS % (AUTO) 0.7 % (0.0-2.0); EOSINOPHILS # (AUTO) 0.2 K/uL (0-0.4); EOSINOPHILS % (AUTO) 2.5 % (0.0-4.0); HEMATOCRIT 25.4 % (36-52); HEMOGLOBIN 7.8 g/dL (12.0-18.0); LYMPHOCYTES # (AUTO) 1.8 K/uL (2.0-11.5); LYMPHOCYTES % (AUTO) 18.5 % (20.5-51.1); MEAN CORPUSCULAR HEMOGLOBIN 24 pg (27-31); MEAN CORPUSCULAR HGB CONC 31 g/dL (33-37); MEAN CORPUSCULAR VOLUME 76.9 fL (80-94); MONOCYTES % (AUTO) 10.4 % (1.7-9.3); NEUTROPHILS # (AUTO) 6.6 K/uL (1.8-7.7); NEUTROPHILS % (AUTO) 67.9 % (42.2-75.2); RED CELL DISTRIBUTION WIDTH 17.9 % (11.6-13.7); WHITE BLOOD COUNT (AUTO) 9.7 K/uL (4.8-10.8)
[2019-09-04 07:46] LABS: PLATELET COUNT (AUTO) 18 K/uL (140-450)
[2019-09-04 08:00] VITALS: BP 124/50
[2019-09-04] MEDS: FINASTERIDE 5 MG TAB GT SCH (09:18)
[2019-09-04] MEDS: risperiDONE 1 MG TAB GT SCH ×2 (09:18→20:20)
[2019-09-04] MEDS: POLYETHYLENE GLYCOL 17 GM/PKT GT SCH ×2 (09:18→20:19)
[2019-09-04] MEDS: BRIMONIDINE TARTRATE 0.2% OP 5 ML BTL OP SCH ×2 (09:19→20:20)
[2019-09-04] MEDS: CHLORHEXADINE GLUC 2% CLOTH TP SCH (09:19)
[2019-09-04] MEDS: MUPIROCIN CA NASAL 2% 1GM TUBE NS SCH (09:19)
[2019-09-04 12:00] VITALS: BP 115/40
[2019-09-04 16:00] VITALS: BP 125/68
[2019-09-04 20:00] VITALS: BP 137/71
[2019-09-05] VITALS: BP 122/46
[2019-09-05 04:00] VITALS: BP 100/58
[2019-09-05 06:10] LABS: LD1 FRACTION 20 % (17-32); LD2 FRACTION 35 % (25-40); LD3 FRACTION 25 % (17-27); LD4 FRACTION 11 % (5-13); LD5 FRACTION 9 % (4-20)
[2019-09-05 08:00] VITALS: BP 112/52
[2019-09-05] MEDS: DEXT 5% / NACL 0.45% 1,000 ML IV SCH ×2 (08:30→20:06)
[2019-09-05 09:48] LABS: BASOPHILS % (AUTO) 0.3 % (0.0-2.0); EOSINOPHILS # (AUTO) 0.3 K/uL (0-0.4); EOSINOPHILS % (AUTO) 2.7 % (0.0-4.0); HEMATOCRIT 25.4 % (36-52); HEMOGLOBIN 7.7 g/dL (12.0-18.0); LYMPHOCYTES # (AUTO) 2.1 K/uL (2.0-11.5); LYMPHOCYTES % (AUTO) 21.5 % (20.5-51.1); MEAN CORPUSCULAR HEMOGLOBIN 23 pg (27-31); MEAN CORPUSCULAR HGB CONC 30 g/dL (33-37); MEAN CORPUSCULAR VOLUME 76.9 fL (80-94); MONOCYTES # (AUTO) 0.9 K/uL (0.8-1.0); MONOCYTES % (AUTO) 9.6 % (1.7-9.3); NEUTROPHILS # (AUTO) 6.3 K/uL (1.8-7.7); NEUTROPHILS % (AUTO) 65.9 % (42.2-75.2); PLATELET COUNT (AUTO) 31 K/uL (140-450); RED BLOOD CELL COUNT(AUTO) 3.31 MIL/uL (4.20-6.10); RED CELL DISTRIBUTION WIDTH 18.2 % (11.6-13.7); WHITE BLOOD COUNT (AUTO) 9.5 K/uL (4.8-10.8)
[2019-09-05] MEDS: risperiDONE 1 MG TAB GT SCH ×2 (09:53→20:06)
[2019-09-05] MEDS: FINASTERIDE 5 MG TAB GT SCH (09:53)
[2019-09-05] MEDS: MUPIROCIN CA NASAL 2% 1GM TUBE NS SCH (09:53)
[2019-09-05] MEDS: POLYETHYLENE GLYCOL 17 GM/PKT GT SCH ×2 (09:54→20:06)
[2019-09-05] MEDS: BRIMONIDINE TARTRATE 0.2% OP 5 ML BTL OP SCH ×2 (09:54→20:06)
[2019-09-05] MEDS: CHLORHEXADINE GLUC 2% CLOTH TP SCH (09:55)
[2019-09-05 09:56] LABS: ANION GAP 9.7 (8-16); CARBON DIOXIDE 30.2 mmol/L (21-32); CREATININE 0.8 mg/dL (0.6-1.3); POTASSIUM 3.9 mmol/L (3.5-5.1)
[2019-09-05 12:00] VITALS: BP 118/64
[2019-09-05] MEDS: FERROUS SULFATE 300 MG/5 ML UDC GT SCH ×2 (13:26→17:16)
[2019-09-05 16:00] VITALS: BP 114/63
[2019-09-05 20:00] VITALS: BP 104/48
[2019-09-06] VITALS: BP 124/70
[2019-09-06 04:00] VITALS: BP 126/69
[2019-09-06] MEDS: DEXT 5% / NACL 0.45% 1,000 ML IV SCH ×3 (06:33→21:51)
[2019-09-06 07:22] LABS: ANION GAP 10.2 (8-16); CARBON DIOXIDE 28.6 mmol/L (21-32); CREATININE 0.7 mg/dL (0.6-1.3); POTASSIUM 3.8 mmol/L (3.5-5.1)
[2019-09-06 07:32] LABS: BASOPHILS % (AUTO) 0.4 % (0.0-2.0); EOSINOPHILS # (AUTO) 0.3 K/uL (0-0.4); EOSINOPHILS % (AUTO) 2.6 % (0.0-4.0); HEMATOCRIT 25.8 % (36-52); HEMOGLOBIN 7.9 g/dL (12.0-18.0); LYMPHOCYTES # (AUTO) 2.2 K/uL (2.0-11.5); LYMPHOCYTES % (AUTO) 21.1 % (20.5-51.1); MEAN CORPUSCULAR HEMOGLOBIN 24 pg (27-31); MEAN CORPUSCULAR HGB CONC 31 g/dL (33-37); MEAN CORPUSCULAR VOLUME 77.4 fL (80-94); MONOCYTES # (AUTO) 1.1 K/uL (0.8-1.0); MONOCYTES % (AUTO) 10.2 % (1.7-9.3); NEUTROPHILS # (AUTO) 6.9 K/uL (1.8-7.7); NEUTROPHILS % (AUTO) 65.7 % (42.2-75.2); PLATELET COUNT (AUTO) 24 K/uL (140-450); RED BLOOD CELL COUNT(AUTO) 3.34 MIL/uL (4.20-6.10); RED CELL DISTRIBUTION WIDTH 18.2 % (11.6-13.7); WHITE BLOOD COUNT (AUTO) 10.5 K/uL (4.8-10.8)
[2019-09-06 08:00] VITALS: BP 110/75
[2019-09-06] MEDS: risperiDONE 1 MG TAB GT SCH ×2 (09:42→21:45)
[2019-09-06] MEDS: FINASTERIDE 5 MG TAB GT SCH (09:42)
[2019-09-06] MEDS: FERROUS SULFATE 300 MG/5 ML UDC GT SCH ×3 (09:42→16:52)
[2019-09-06] MEDS: POLYETHYLENE GLYCOL 17 GM/PKT GT SCH ×2 (09:42→21:44)
[2019-09-06] MEDS: BRIMONIDINE TARTRATE 0.2% OP 5 ML BTL OP SCH ×2 (09:43→21:45)
[2019-09-06 12:00] VITALS: BP 114/56
[2019-09-06] MEDS ORDERED: KETAMINE 500 MG/5 ML VIAL ONE (13:53)
[2019-09-06] MEDS ORDERED: PROPOFOL 1000 MG/100 ML PREMIX 100 ML IV PRN (13:55)
[2019-09-06] MEDS ORDERED: MIDAZOLAM 2 MG/2 ML VIAL ONE (13:55)
[2019-09-06] MEDS ORDERED: LIDOCAINE 2% 1000 MG/50 ML VIAL INJ ONE (14:20)
[2019-09-06 16:00] VITALS: BP 117/70
[2019-09-07] VITALS: BP 122/75
[2019-09-07] MEDS: DEXT 5% / NACL 0.45% 1,000 ML IV SCH ×3 (00:30→20:30)
[2019-09-07 07:29] LABS: BASOPHILS % (AUTO) 0.3 % (0.0-2.0); EOSINOPHILS # (AUTO) 0.3 K/uL (0-0.4); EOSINOPHILS % (AUTO) 2.2 % (0.0-4.0); HEMOGLOBIN 7.5 g/dL (12.0-18.0); LYMPHOCYTES # (AUTO) 1.3 K/uL (2.0-11.5); MEAN CORPUSCULAR HEMOGLOBIN 23 pg (27-31); MEAN CORPUSCULAR HGB CONC 30 g/dL (33-37); MEAN CORPUSCULAR VOLUME 77.2 fL (80-94); MONOCYTES # (AUTO) 0.7 K/uL (0.8-1.0); MONOCYTES % (AUTO) 5.1 % (1.7-9.3); NEUTROPHILS # (AUTO) 10.9 K/uL (1.8-7.7); NEUTROPHILS % (AUTO) 82.4 % (42.2-75.2); PLATELET COUNT (AUTO) 27 K/uL (140-450); RED BLOOD CELL COUNT(AUTO) 3.23 MIL/uL (4.20-6.10); RED CELL DISTRIBUTION WIDTH 18.6 % (11.6-13.7); WHITE BLOOD COUNT (AUTO) 13.3 K/uL (4.8-10.8)
[2019-09-07 07:50] LABS: ALBUMIN 2.8 g/dL (3.4-5.0); ANION GAP 11.5 (8-16); CARBON DIOXIDE 27.2 mmol/L (21-32); CREATININE 0.7 mg/dL (0.6-1.3); POTASSIUM 3.7 mmol/L (3.5-5.1); TOTAL BILIRUBIN 0.5 mg/dL (0.0-1.0)
[2019-09-07 08:00] VITALS: BP 123/72
[2019-09-07] MEDS: FINASTERIDE 5 MG TAB GT SCH (10:30)
[2019-09-07] MEDS ORDERED: MAGNESIUM CITRATE 300 ML BTL PO SCH ×2 (10:30→16:35)
[2019-09-07] MEDS: POLYETHYLENE GLYCOL 17 GM/PKT GT SCH ×3 (10:30→20:18)
[2019-09-07] MEDS: FERROUS SULFATE 300 MG/5 ML UDC GT SCH ×2 (10:31→13:25)
[2019-09-07] MEDS: risperiDONE 1 MG TAB GT SCH ×2 (10:31→20:18)
[2019-09-07] MEDS: BRIMONIDINE TARTRATE 0.2% OP 5 ML BTL OP SCH ×2 (10:32→20:18)
[2019-09-07 16:00] VITALS: BP 98/64
[2019-09-07] MEDS: SENNA 8.6 MG TAB PO SCH (17:28)
[2019-09-07] MEDS ORDERED: LEVOFLOXACIN 750 MG TAB GT SCH (21:00)
[2019-09-08] VITALS: BP 99/56
[2019-09-08] MEDS: DEXT 5% / NACL 0.45% 1,000 ML IV SCH ×3 (03:53→23:19)
[2019-09-08 08:00] VITALS: BP 84/53
[2019-09-08 08:17] LABS: ANION GAP 11.2 (8-16); CARBON DIOXIDE 27.8 mmol/L (21-32)
[2019-09-08 08:44] LABS: PROTHROMBIN TIME 10.7 secs (10.8-13.4)
[2019-09-08] MEDS: BRIMONIDINE TARTRATE 0.2% OP 5 ML BTL OP SCH ×2 (09:00→20:07)
[2019-09-08] MEDS: risperiDONE 1 MG TAB GT SCH (09:21)
[2019-09-08] MEDS: POLYETHYLENE GLYCOL 17 GM/PKT GT SCH (09:21)
[2019-09-08] MEDS: FINASTERIDE 5 MG TAB GT SCH (09:21)
[2019-09-08] MEDS: SENNA 8.6 MG TAB PO SCH (09:21)
[2019-09-08] MEDS ORDERED: MIDAZOLAM 2 MG/2 ML VIAL ONE (09:27)
[2019-09-08] MEDS ORDERED: fentaNYL 0.05 MG/ML VIAL ONE (09:27)
[2019-09-08] MEDS: MIDAZOLAM 2 MG/2 ML VIAL IVP SCH ×2 (09:54→14:15)
[2019-09-08] MEDS: fentaNYL 0.05 MG/ML VIAL IVP SCH ×2 (09:55→14:15)
[2019-09-08 10:15] LABS: HEMATOCRIT 21.3 % (36-52); MEAN CORPUSCULAR HEMOGLOBIN 24 pg (27-31); MEAN CORPUSCULAR HGB CONC 29 g/dL (33-37); MEAN CORPUSCULAR VOLUME 82.2 fL (80-94); RED BLOOD CELL COUNT(AUTO) 2.58 MIL/uL (4.20-6.10); RED CELL DISTRIBUTION WIDTH 18.6 % (11.6-13.7); WHITE BLOOD COUNT (AUTO) 20.3 K/uL (4.8-10.8)
[2019-09-08 10:24] LABS: HEMOGLOBIN 6.2 g/dL (12.0-18.0)
[2019-09-08 10:25] LABS: PLATELET COUNT (AUTO) 12 K/uL (140-450)
[2019-09-08 10:30] LABS: LYMPHOCYTES % (MANUAL) 15 % (20-46); MONOCYTES % (MANUAL) 5 % (5-12)
[2019-09-08] MEDS ORDERED: POLYETHYLENE GLYCOL 17 GM/PKT GT SCH (12:00)
[2019-09-08 12:38] LABS: PROTHROMBIN TIME 10.6 secs (10.8-13.4)
[2019-09-08] MEDS: ERYTHROMYCIN ETHYLSUCCINATE SUSP 200 MG/5 ML UDC PO SCH ×2 (13:00→17:00)
[2019-09-08] MEDS: SODIUM FERRIC GLUCONATE 125 MG in NACL 0.9% 100 ML IV SCH (14:27)
[2019-09-08 16:00] VITALS: BP 73/41
[2019-09-08] MEDS ORDERED: NACL 0.9% 1,000 ML IV ONE (16:50)
[2019-09-08] MEDS: LEVOFLOXACIN 750 MG/D5W PREMIX 150 ML IV SCH (22:01)
[2019-09-08] MEDS: methylPREDNISolone SS 40 MG/ML VIAL IVP SCH (22:02)
[2019-09-09] VITALS: BP 95/53
[2019-09-09 06:19] LABS: MEAN CORPUSCULAR HEMOGLOBIN 26 pg (27-31); MEAN CORPUSCULAR HGB CONC 30 g/dL (33-37); MEAN CORPUSCULAR VOLUME 85.4 fL (80-94); RED CELL DISTRIBUTION WIDTH 18.7 % (11.6-13.7)
[2019-09-09 06:35] LABS: HEMATOCRIT 17.1 % (36-52); HEMOGLOBIN 5.2 g/dL (12.0-18.0); PLATELET COUNT (AUTO) 15 K/uL (140-450); WHITE BLOOD COUNT (AUTO) 37.1 K/uL (4.8-10.8)
[2019-09-09 07:17] LABS: BASOPHILS % (MANUAL) 0 % (0-2); EOSINOPHILS % (MANUAL) 0 % (0-4); LYMPHOCYTES % (MANUAL) 12 % (20-46); MONOCYTES % (MANUAL) 2 % (5-12)
[2019-09-09 07:28] LABS: ANION GAP 11.1 (8-16); CARBON DIOXIDE 26.9 mmol/L (21-32)
[2019-09-09 08:00] VITALS: BP 112/57
[2019-09-09] MEDS: methylPREDNISolone SS 40 MG/ML VIAL IVP SCH ×2 (09:13→20:58)
[2019-09-09] MEDS: FINASTERIDE 5 MG TAB GT SCH (09:13)
[2019-09-09] MEDS: POLYETHYLENE GLYCOL 17 GM/PKT GT SCH (09:13)
[2019-09-09] MEDS: ERYTHROMYCIN ETHYLSUCCINATE SUSP 200 MG/5 ML UDC PO SCH ×3 (09:14→17:33)
[2019-09-09] MEDS: BRIMONIDINE TARTRATE 0.2% OP 5 ML BTL OP SCH ×2 (09:14→20:46)
[2019-09-09] MEDS: DEXT 5% / NACL 0.45% 1,000 ML IV SCH ×2 (12:23→22:30)
[2019-09-09] MEDS: SODIUM FERRIC GLUCONATE 125 MG in NACL 0.9% 100 ML IV SCH (12:25)
[2019-09-09] MEDS ORDERED: VANCOMYCIN PER PHARMACY MC PRN (13:25)
[2019-09-09] MEDS: VANCOMYCIN 1,000 MG in DEXTROSE 5% 250 ML IV SCH (14:50)
[2019-09-09 16:00] VITALS: BP 108/56
[2019-09-09] MEDS: LEVOFLOXACIN 750 MG/D5W PREMIX 150 ML IV SCH (20:58)
[2019-09-10] VITALS: BP 146/71
[2019-09-10 07:00] LABS: MEAN CORPUSCULAR HEMOGLOBIN 26 pg (27-31); MEAN CORPUSCULAR HGB CONC 30 g/dL (33-37); MEAN CORPUSCULAR VOLUME 85.4 fL (80-94); RED BLOOD CELL COUNT(AUTO) 2.58 MIL/uL (4.20-6.10); RED CELL DISTRIBUTION WIDTH 19.3 % (11.6-13.7)
[2019-09-10 07:15] LABS: ALBUMIN 2.3 g/dL (3.4-5.0); ANION GAP 11.2 (8-16); CARBON DIOXIDE 26.5 mmol/L (21-32); CREATININE 0.7 mg/dL (0.6-1.3); POTASSIUM 3.7 mmol/L (3.5-5.1)
[2019-09-10 07:49] LABS: WHITE BLOOD COUNT (AUTO) 49.2 K/uL (4.8-10.8)
[2019-09-10 07:50] LABS: HEMOGLOBIN 6.7 g/dL (12.0-18.0); PLATELET COUNT (AUTO) 12 K/uL (140-450)
[2019-09-10 07:51] LABS: BASOPHILS % (MANUAL) 0 % (0-2); EOSINOPHILS % (MANUAL) 0 % (0-4); LYMPHOCYTES % (MANUAL) 6 % (20-46); MONOCYTES % (MANUAL) 3 % (5-12)
[2019-09-10 07:54] LABS: MYELOCYTES % 6 % (0-0)
[2019-09-10 08:00] VITALS: BP 156/58
[2019-09-10] MEDS: DEXT 5% / NACL 0.45% 1,000 ML IV SCH (08:34)
[2019-09-10] MEDS: POLYETHYLENE GLYCOL 17 GM/PKT GT SCH (09:00)
[2019-09-10] MEDS: FINASTERIDE 5 MG TAB GT SCH (09:32)
[2019-09-10] MEDS: methylPREDNISolone SS 40 MG/ML VIAL IVP SCH (09:32)
[2019-09-10] MEDS: ERYTHROMYCIN ETHYLSUCCINATE SUSP 200 MG/5 ML UDC PO SCH ×3 (09:33→18:08)
[2019-09-10] MEDS: BRIMONIDINE TARTRATE 0.2% OP 5 ML BTL OP SCH (09:33)
[2019-09-10] MEDS ORDERED: [UNRECOGNIZED DRUG - CODE] IV (13:04)
[2019-09-10] MEDS ORDERED: DEXT150S16 IV (13:04)
[2019-09-10] MEDS ORDERED: VANC1FRO IV (13:04)
[2019-09-10] MEDS ORDERED: METH40PD15 IVP (13:04)
[2019-09-10] MEDS ORDERED: ERYT200P5 PO (13:04)
[2019-09-10] MEDS: SODIUM FERRIC GLUCONATE 125 MG in NACL 0.9% 100 ML IV SCH (13:17)
[2019-09-10] MEDS: VANCOMYCIN 1,000 MG in DEXTROSE 5% 250 ML IV SCH (14:50)
[2019-09-10 16:00] VITALS: BP 135/65
== END 2019-09-10 18:25 | DRG 377 ==
LOC: MED 18:21 → MTU 20:18
PROVIDERS: ADMIT Preventive Medicine Preventive Medicine/Occupational Environmental Medicine; ATTEND Preventive Medicine Preventive Medicine/Occupational Environmental Medicine
PROC: 30233R1 Transfusion of Nonautologous Platelets into Peripheral Vein, Percutaneous Approach (ICD-10-PCS; 2019-08-31)
PROC: 30233R1 Transfusion of Nonautologous Platelets into Peripheral Vein, Percutaneous Approach (ICD-10-PCS; principal; 2019-09-08 09:30)
PROC: 0W3P8ZZ Control Bleeding in Gastrointestinal Tract, Via Natural or Artificial Opening Endoscopic (ICD-10-PCS; 2019-09-08 09:30)
PROC: 0DJD8ZZ Inspection of Lower Intestinal Tract, Via Natural or Artificial Opening Endoscopic (ICD-10-PCS; 2019-09-08 09:30)
DX: K29.71 Gastritis, unspecified, with bleeding (principal); E43 Unspecified severe protein-calorie malnutrition; B19.10 Unspecified viral hepatitis B without hepatic coma; D69.6 Thrombocytopenia, unspecified; D50.9 Iron deficiency anemia, unspecified; Z93.1 Gastrostomy status; E83.51 Hypocalcemia; Z88.2 Allergy status to sulfonamides; Z88.1 Allergy status to other antibiotic agents; D47.2 Monoclonal gammopathy; F79 Unspecified intellectual disabilities; G80.9 Cerebral palsy, unspecified; H54.8 Legal blindness, as defined in USA; J45.909 Unspecified asthma, uncomplicated; K25.9 Gastric ulcer, unspecified as acute or chronic, without hemorrhage or perforation; K44.9 Diaphragmatic hernia without obstruction or gangrene; K52.9 Noninfective gastroenteritis and colitis, unspecified; Z22.322 Carrier or suspected carrier of Methicillin resistant Staphylococcus aureus; R73.9 Hyperglycemia, unspecified; R74.0 Nonspecific elevation of levels of transaminase and lactic acid dehydrogenase [LDH]; K21.0 Gastro-esophageal reflux disease with esophagitis
CPT/HCPCS: 36415; 71045; 74150; 76700; 77012; 80048; 80053; 82272; 82607; 82728; 82746; 83010; 83625; 84165; 84484; 85025; 85045; 85379; 85384; 85610; 85651; 85730; 86140; 86704; 86706; 86708; 86709; 86803; 86886; 86900; 86901; 86920; 87040; 87070; 87081; 87340; 93005; 99285; C1751; C1758; J1644; J1956; J2001; J2060; J2250; J2405; J2704; J2916; J2920; J3010; J3370; J7030; J7060; P9016; P9035; Q0092